=== PATIENT | male | born 1945 | race African-American/Black ===

== ENCOUNTER → 2020-02-27 10:18 | Outpatient (BNVA) | payer MEDICARE, SELFPAY | PROVIDERS: PCP Internal Medicine; Referring Provider Internal Medicine; Visit Provider Urology | DX: C61 Malignant neoplasm of prostate (principal) | CPT/HCPCS: 51798; 99214 ==

== ENCOUNTER 2020-03-19 07:55 | Outpatient (REF) | payer MEDICARE, SELFPAY ==
[2020-03-19 08:05] VITALS: BP 172/98; PULSE 91; RESP 16; TEMP 36.1; O2SAT 96
[2020-03-19 08:10] VITALS: BMI 33.7
--- NOTE | 2020-03-19 08:31 | MHC.SHP ---
Pre-Procedural Eval Section A The patient is an INPATIENT: No Changes since office visit: No Cold of Flu in the past 2 weeks, No New Medical Problems, No Changes in Medication and No Patient answered all questions The History & Physical has been completed within 30 days and I have reviewed it.: Yes Section B Chief Complaint: prostate ca Allergies: Allergies Allergy/AdvReac Type Severity Reaction Status Date / Time No Known Allergies Allergy Verified 02/27/20 10:51 Plan Patient has been examined and remains a candidate for the planned procedure
--- NOTE | 2020-03-19 08:32 | W.PM.OPN ---
Operative Note Operative Note Date of Service: 03/19/20 Narrative: PreOperative Diagnosis: Prostate cancer Post Operative Diagnosis: Prostate Cancer Procedure: TRUS Perineal nerve block, TRUS gold seed marker placement Surgeon: Dr Gigi Gan Anesthesia: Local Indications for procedure: Prostate Cancer Procedure: Informed consent was verified Placed in left lateral position Abx had been taken Anticoagulation was held Probe placed with lubrication 10cc lidocaine placed 2 markers placed base and apex right 1 marker placed mid left Tolerated well Plan for XRT Pathology: none Drains: none
== END 2020-03-19 07:56 | disposition home or self-care (01) ==
LOC: HO.MS 07:55
PROVIDERS: PCP Internal Medicine; Visit Provider Urology
PROC: (CPT 55876; principal; 2020-03-19 08:00)
DX: C61 Malignant neoplasm of prostate (principal)
CPT/HCPCS: 55876; 76942; A4648

== ENCOUNTER 2020-03-24 14:33 | Outpatient (REF) | payer MEDICARE, SELFPAY ==
[2020-03-24 16:54] LABS: Prostate Specific Antigen Scr < 0.05 ng/mL (<0.05-4.0)
== END 2020-03-24 14:34 | disposition home or self-care (01) ==
LOC: HO.LAB 14:33
PROVIDERS: PCP Internal Medicine; Visit Provider Urology
DX: R30.0 Dysuria (principal); R97.20 Elevated prostate specific antigen [PSA]
CPT/HCPCS: 84153; 87086; 87088; 87186

== ENCOUNTER → 2020-04-08 12:45 | Outpatient (BNVA) | payer MEDICARE, SELFPAY | PROVIDERS: PCP Internal Medicine; Referring Provider Internal Medicine; Visit Provider Urology | DX: C61 Malignant neoplasm of prostate (principal); N48.1 Balanitis | CPT/HCPCS: 99212; J9217 ==

== ENCOUNTER 2020-07-06 09:40 | Outpatient (REF) | payer MEDICARE, SELFPAY ==
[2020-07-06 11:15] LABS: Prostate Specific Antigen < 0.05 ng/mL (<0.05-4.0)
[2020-07-14 18:31] LABS: Testosterone, Total 6 ng/dL (250-1100)
== END 2020-07-06 09:41 | disposition home or self-care (01) ==
LOC: HO.LAB 09:40
PROVIDERS: PCP Internal Medicine Nephrology; Visit Provider Urology
DX: Z12.5 Encounter for screening for malignant neoplasm of prostate (principal); C61 Malignant neoplasm of prostate
CPT/HCPCS: 36415; 84153; 84403

== ENCOUNTER 2020-07-20 09:44 | Outpatient (REF) | payer MEDICARE, SELFPAY | END 2020-07-20 09:45 | disposition home or self-care (01) | LOC: CF 09:44 | PROVIDERS: PCP Internal Medicine Nephrology; Visit Provider Urology | DX: N39.0 Urinary tract infection, site not specified (principal); N41.9 Inflammatory disease of prostate, unspecified; C61 Malignant neoplasm of prostate | CPT/HCPCS: 81002; 87086; 87088; 87186; 99212 ==

== ENCOUNTER → 2020-09-30 09:55 | Outpatient (BNVA) | payer MEDICARE, SELFPAY | PROVIDERS: PCP Internal Medicine Nephrology; Visit Provider Urology | DX: C61 Malignant neoplasm of prostate (principal); I48.20 Chronic atrial fibrillation, unspecified; I50.22 Chronic systolic (congestive) heart failure; Z79.899 Other long term (current) drug therapy | CPT/HCPCS: 96402; 99212; J9217 ==

== ENCOUNTER → 2021-01-04 11:04 | Outpatient (BNVA) | payer MEDICARE, SELFPAY | PROVIDERS: PCP Internal Medicine Nephrology; Visit Provider Urology | DX: Z13.89 Encounter for screening for other disorder (principal) | CPT/HCPCS: Q3014 ==

== ENCOUNTER → 2021-04-05 11:35 | Outpatient (BNVA) | payer MEDICARE, SELFPAY | PROVIDERS: PCP Internal Medicine Nephrology; Visit Provider Urology | DX: Z13.89 Encounter for screening for other disorder (principal) | CPT/HCPCS: Q3014 ==

== ENCOUNTER → 2021-06-29 11:23 | Outpatient (BNVA) | payer MEDICARE, SELFPAY | PROVIDERS: PCP Internal Medicine Nephrology; Visit Provider Urology | DX: C61 Malignant neoplasm of prostate (principal) | CPT/HCPCS: Q3014 ==

== ENCOUNTER → 2021-10-05 12:55 | Outpatient (BNVA) | payer MEDICARE, SELFPAY | PROVIDERS: PCP Internal Medicine Nephrology; Visit Provider Urology | DX: C61 Malignant neoplasm of prostate (principal) | CPT/HCPCS: Q3014 ==

== ENCOUNTER → 2022-05-16 11:13 | Outpatient (BNVA) | payer MEDICARE, SELFPAY | PROVIDERS: PCP Internal Medicine Nephrology; Visit Provider Urology | DX: C61 Malignant neoplasm of prostate (principal) | CPT/HCPCS: Q3014 ==

== ENCOUNTER 2023-01-02 11:20 | Outpatient (AMB) | payer MEDICARE, SELFPAY ==
--- OUTSIDE RECORDS SUMMARY | 2023-01-02 11:21 | XMS_ITS | Continuity of Care Document ---
Author Name Unknown Organization [facility] Address [address] [place] [address]- Care Team Providers Care [employer] Service Technician Name Role Phone Norberto Yost MD [id number] Date[facility] 09[facility] [address], [place] [address] Discharge Disposition: A-D/C Home Attending Physician: Leida MARINELLI(Hem/Onc), Navid Phipps Admitting Physician: Leida MARINELLI(Hem/Onc), Navid Phipps Referring Physician: Norberto Yost MD Allergies, Adverse Reactions, Alerts No Known Allergies Medications carvedilol 25 mg oral tablet By Mouth, 0 Refills, Maintenance, 03/11/14 13:49:28 Start Date: 03/11/14 Status: Ordered Crestor 40 mg oral tablet 1 tablet = 40 mg, By Mouth, Daily, # 30 tablet, 0 Refills, Maintenance, 07/19/15 21:22:51, Tablet Start Date: 07/19/15 Status: Ordered ezetimibe 10 mg oral tablet 1 tablet = 10 mg, By Mouth, Daily, # 90 tablet, 0 Refills, Maintenance, 06/24/18 9:49:41 EST, Tablet Start Date: 06/24/18 Status: Ordered ferrous sulfate 325 mg oral tablet 1 tablet = 325 mg, By Mouth, 3 times a day, 0 Refills Start Date: 05/10/09 Stop Date: 06/09/09 Status: Ordered finasteride 5 mg oral tablet 1 tablet = 5 mg, By Mouth, Daily, # 90 tablet, 0 Refills, Maintenance, 06/24/18 9:49:33 EST, Tablet Start Date: 06/24/18 Status: Ordered Lasix Tablet 80, mg, By Mouth, 2 times a day, 0, 0, 02/16/08 14:53:22, Print MERLINE Number, [id number], Constant Indicator Start Date: 02/16/08 Status: Ordered Soliqua 100/33 subcutaneous solution 0 Refills, Maintenance, 06/24/18 9:49:02 EST Start Date: 06/24/18 Status: Ordered Spiriva HandiHaler 18 mcg Inhalation Capsule 1 capsule = 18 mcg, Inhalation, Daily, # 90 capsule, 0 Refills, Maintenance, 03/11/14 13:47:51, Capsule Start Date: 03/11/14 Status: Ordered Stiolto Respimat 2 puffs, Inhalation, Every 24 hours, 0 Refills, Maintenance, 01/22/17 10:24:10 Start Date: 01/22/17 Status: Ordered Vitamin D 42010 iu oral capsule = 50,000 International_Units, By Mouth, Every week, 0 Refills Start Date: 05/10/09 Stop Date: 06/07/09 Status: Ordered Problem List Condition Confirmation Course Effective Dates Status Health St atus Informant 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 Vital Signs Most recent to oldest [Reference Range]: 1 Height 189 cm (06/16/22 11:10 AM) Weight 129.5 kg (06/16/22 11:10 AM) Oxygen Saturation [94-100 %] 91 % *L* (06/16/22 11:10 AM) Pulse Rate [55-90 bpm] 66 bpm (06/16/22 11:10 AM) Body Mass Index [18.5-24.99 kg/m2] 36.25 kg/m2 *>HHI* (06/16/22 11:10 AM) Blood Pressure [90-138/55-84 mm Hg] 157/ 80mm Hg *H* (06/16/22 11:10 AM) Temperature [96.8-100.4 DegF] 97.4 DegF (06/16/22 11:10 AM) Blood pressure sites Arm, left (06/16/22 11:10 AM) Temperature Route Oral (06/16/22 11:10 AM) Dry Weight 129.5 kg (06/16/22 11:10 AM) Weight Obtained Via Standing scale (06/16/22 11:10 AM) Dry Weight Obtained Via Standing scale (06/16/22 11:10 AM) Social History Social History Type Response Smoking Status Former smoker entered on: 08/28/14 Sex Note * Marisa Reyes MA: PERFORM, SIGN, VERIFY Event Display: Patient Education/Instruction Authored Date: [id number] [facility] *Heme/Onc Adult Clinical Summary Name RORY ARGUETA Age 76 Years 1945 PCP Priyank MARINELLI, [id number] Date 06/13/2022 15:09:00 Additional Instructions: Scheduled Appointments?? Future Appointments ?[facility] ?[address]??[place],??[place],??[address] ?Phone:??[phone]?Fax:??-- ?Appt. Date:??08/31/2022?9:00 AM ?Scheduled Provider:??[facility] Follow-Up Instructions ?? With: Address: When: Navid Garciarahul 02/12/2023 11:00 AM Comments: @3400 Diagnosis Medications: Please continue your medications until treatment is completed or stopped by your provider. Discuss any questions related to medications with your provider. Medications to Continue with No Changes These medications were not printed or sent to your pharmacy Carvedilol (carvedilol 25 mg oral tablet) Oral. Next Dose: Ergocalciferol (Vitamin D 71138 iu oral capsule) 50,000 International Unit Oral every week. Next Dose: Ezetimibe (ezetimibe 10 mg oral tablet) 1 tab(s) Oral Daily. Next Dose: Ferrous Sulfate (ferrous sulfate 325 mg oral tablet) 1 tab(s) Oral 3 times a day. Next Dose: Finasteride (finasteride 5 mg oral tablet) 1 tab(s) Oral Daily. Next Dose: Furosemide (Lasix Tablet) 80 Milligram Oral twice a day. Next Dose: insulin glargine-lixisenatide (Soliqua 100/33 subcutaneous solution) Next Dose: olodaterol-tiotropium (Stiolto Respimat) 2 puff(s) Inhalation every 24 hours. Next Dose: Rosuvastatin (Crestor 40 mg oral tablet) 1 tab(s) Oral Daily. Next Dose: Tiotropium (Spiriva HandiHaler 18 mcg Inhalation Capsule) 18 Microgram Inhalation Daily. Next Dose: Allergy Info:?? NKA Medications Given This Visit Future Orders ?No future orders Vital Signs Height 189 cm Weight 129.5 kg BMI 36.25 kg/m2 Blood Pressure 157 mm Hg/80 mm Hg Temperature 97.4 DegF Pulse Rate 66 bpm Respiratory Rate 02 Sat Mode of Delivery 91 %/ You can now view a summary of your hospital visit from the comfort of your home through a free online portal called [employer]. [employer] is a website that allows you to securely view your medical information including discharge summary, medications and follow-up visits. ??You can alsosend a secure electronic message to your doctor???s office to request appointments, renew medications or just ask a question. You can enroll at [email or web address] or register during your next office visit. Disclaimer:?? The information provided is of a general nature and is intended to be used in conjunction with the recommendations and advice of your health care practitioner. ??Every effort has been made to ensure that the information provided is accurate and complete at the time it is provided to you however, as your needs change, or, as new ??information becomes available, different or additional instructions may be required. If you have questions, please consult with your primary care provider or pharmacist, as appropriate. ??This information is not intended to serve as substitution for assessment and evaluation by a qualified health care provider. If you do not have a primary care provider, you may find a [facility] provider by calling [facility] [employer] [facility] at [phone]. For information about the plan of care including goals and instructions for your diagnosis, please see the patient education orders section of this document. Patient Education Materials?? The content of this educational material or handout may have been modified, supplemented, or adapted from its original content and format to support your individualized medical care. Patient Care team information Care Team Personnel Name: Norberto Yost MD Position: [facility] Physician (General Medicine) Member Role: PCP Address: Address: [address] [place] [address] [address] [place] [address]- Care Team Related Persons Name: RUBÉN MERCADO Address: home [address] [place], [place] Name: CHAU ARGUETA Address: [address] [place] [address]
--- OUTSIDE RECORDS SUMMARY | 2023-01-02 11:21 | XMS_ITS | Continuity of Care Document ---
Author Name Unknown Organization [facility] an[facility] Address [address] [place] [address]- Care Team Providers Care Safety Lead Name Role Phone Norberto Yost MD Primary Care Physician [facility] [id number] Date(s): 06/13/22 - 07/13/22 [facility] [address] [place], [place] [address] Attending Physician: Barbara Reyes Admitting Physician: AdmBarbara connell Referring Physician: AdmtrBarbara Allergies, Adverse Reactions, Alerts No Known Allergies [...] 0, 0, 02/16/08 14:53:22, Print MERLINE Number, [id number], Constant Indicator Start Date: 02/16/08 Status: Ordered [...] Start Date: 01/22/17 Status: Ordered Vitamin D 87338 iu oral capsule = 50,000 International_Units, By Mouth, Every week, 0 Refills Start Date: 05/10/09 Stop Date: 06/07/09 Status: Ordered Problem List Condition Confirmation Course Effective Dates Status Health St atus Informant 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
--- OUTSIDE RECORDS SUMMARY | 2023-01-02 11:21 | XMS_ITS | Continuity of Care Document ---
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 Date(s): 12/28/22 - 12/28/[address] [address] Discharge Disposition: A-D/C Home Attending Physician: Jose Antonio Mike MD Admitting Physician: Jose Antonio Mike MD Referring Physician: Jose nAtonio Mike MD Allergies, Adverse Reactions, Alerts No Known Allergies Medications carvedilol 25 mg oral tablet 1 tablet = 25 mg, By Mouth, 2 times a day, 0 Refills, Maintenance, 03/11/14 13:49:28 EST Start Date: 03/11/14 Status: Ordered Coumadin Tablet By Mouth, Daily, coumadin dose changed per pt. by Dr. Yost, PCP, 0 Refills, Maintenance, 12/27/22 11:01:00 EDT, Tablet Start Date: 12/27/22 Status: Ordered Crestor 40 mg oral tablet 1 tablet = 40 mg, By Mouth, Daily, # 30 tablet, 0 Refills, Maintenance, 07/19/15 21:22:51 EDT, Tablet Start Date: 07/19/15 Status: Ordered Entresto 49 mg-51 mg oral tablet 1 tablet, By Mouth, 2 times a day, # 60 tablet, 0 Refills, Maintenance, 12/27/22 11:17:00 EDT, Tablet, Partial fill upon patient request if the prescription is for a schedule II opioid drug. Start Date: 12/27/22 Status: Ordered esomeprazole 40 mg oral enteric coated capsule 1 capsule = 40 mg, By Mouth, Daily in AM, # 30 capsule, 0 Refills, Maintenance, 12/27/22 11:07:00 EDT, CR Capsule, Partial fill upon patient request if the prescription is for a schedule II opioid drug. Start Date: 12/27/22 Status: Ordered ezetimibe 10 mg oral tablet 1 tablet = 10 mg, By Mouth, Daily, # 90 tablet, 0 Refills, Maintenance, 06/24/18 9:49:41 EST, Tablet Start Date: 06/24/18 Status: Ordered Farxiga 10 mg oral tablet 1 tablet = 10 mg, By Mouth, Daily in AM, # 30 tablet, 0 Refills, Maintenance, 12/27/22 11:15:00 EDT, Tablet, Partial fill upon patient request if the prescription is for a schedule II opioid drug. Start Date: 12/27/22 Status: Ordered ferrous sulfate 325 mg oral tablet 1 tablet = 325 mg, By Mouth, 3 times a day, 0 Refills, Soft Stop, 05/10/09 17:20:14 EST Start Date: 05/10/09 Stop Date: 06/09/09 Status: Ordered finasteride 5 mg oral tablet 1 tablet = 5 mg, By Mouth, Daily, # 90 tablet, 0 Refills, Maintenance, 06/24/18 9:49:33 EST, Tablet Start Date: 06/24/18 Status: Ordered Lasix Tablet 80 mg, By Mouth, 2 times a day, Refills 0, Tot. Refills 0, 02/16/08 14:53:22 EDT Start Date: 02/16/08 Status: Ordered metolazone 5 mg oral tablet 5 mg, 1, tablet, By Mouth, Every 7 days, takes on Wednesdays, once a week., # 30 tablet, Refills 0,Maintenance, 12/27/22 11:26:00 EDT, Partial fill upon patient request if the prescription is for a schedule II opioid drug. Start Date: 12/27/22 Status: Ordered Miscellaneous Rx potassium 10 mg tablet, By Mouth, Daily in AM, 0 Refills, Maintenance, 12/27/22 11:21:00 EDT Start Date: 12/27/22 Status: Ordered Repatha Subcutaneous Infusion, Every 14 days, last dose was on 12/25/2022., 0 Refills, Maintenance, 12/27/2310:20:00 EDT, Partial fill upon patient request if the prescription is for a schedule II opioid drug. Start Date: 12/27/22 Status: Ordered Soliqua 100/33 subcutaneous solution 24 units, Daily in AM, 0 Refills, Maintenance, 06/24/18 9:49:02 EST Start Date: 06/24/18 Status: Ordered Spiriva HandiHaler 18 mcg Inhalation Capsule 1 capsule = 18 mcg, Inhalation, Daily in AM, # 90 capsule, 0 Refills, Maintenance, 03/11/14 13:47:51 EST, Capsule Start Date: 03/11/14 Status: Ordered Stiolto Respimat 2 puffs, Inhalation, Every 24 hours, 0 Refills, Maintenance, 01/22/17 10:24:10 EDT Start Date: 01/22/17 Status: Ordered Symbicort 160mcg/4.5mcg Inhaler 2, puffs, Inhalation, 2 times a day, # 6 Gm, Refills 0, Maintenance, 12/27/22 11:32:00 EDT, Aerosol Start Date: 12/27/22 Status: Ordered torsemide 20 mg oral tablet 1 tablet = 20 mg, By Mouth, 2 times a day, # 30 tablet, 0 Refills, Maintenance, 12/27/22 11:09:00 EDT, Tablet, Partial fill upon patient request if the prescription is for a schedule II opioid drug. Start Date: 12/27/22 Status: Ordered Vitamin D 92270 iu oral capsule 1000 iu, By Mouth, Daily in AM, 0 Refills, Soft Stop, 05/10/09 17:22:15 EST Start Date: 05/10/09 Stop Date: 06/07/09 Status: Ordered Problem List Condition Confirmation Course Effective Dates Status [facility] Informant 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 Vital Signs Most recent to oldest [Reference Range]: 1 2 3 Height 187.96 cm (12/28/22 11:49 AM) 187.96 cm (12/27/22 12:03 PM) Weight 118.1 kg (12/28/22 11:49 AM) 115.91 kg (12/27/22 12:03 PM) Oxygen Saturation [94-100 %] 93 % *L* (12/28/22 1:15 PM) 94 % (12/28/22 1:00 PM) 100 % (12/28/22 12:45 PM) Pulse Rate [55-90 bpm] 75 bpm (12/28/22 11:49 AM) Body Mass Index [18.5-24.99 kg/m2] 33.43 kg/m2 *>HHI* (12/28/22 11:49 AM) 32.81 kg/m2 *>HHI* (12/27/22 12:03 PM) Blood Pressure [90-138/55-84 mm Hg] 119/71mm Hg (12/28/22 1:00 PM) 103/56mm Hg (12/28/22 12:45 PM) 112/80mm Hg (12/28/22 11:49 AM) Respiratory Rate [16-30 br/min] 18 br/min (12/28/22 1:15 PM) 19 br/min (12/28/22 1:00 PM) 27 br/min (12/28/22 12:45 PM) Temperature [96.8-100.4 DegF] 98.2 DegF (12/28/22 2:30 PM) 97.3 DegF (12/28/22 12:45 PM) 98.7 DegF (12/28/22 11:49 AM) Liters per Minute 6 L/min (12/28/22 12:45 PM) Mode of Delivery (Oxygen) Room air (12/28/22 2:30 PM) Room air (12/28/22 1:00 PM) Simple face mask (12/28/22 12:45 PM) Blood pressure sites Arm, left (12/28/22 1:00 PM) Arm, left (12/28/22 12:45 PM) Arm, left (12/28/22 11:49 AM) Temperature Route Temporal (12/28/22 2:30 PM) Temporal (12/28/22 12:45 PM) Temporal (12/28/22 11:49 AM) Dry Weight 118.1 kg (12/28/22 11:49 AM) 115.91 kg (12/27/22 12:03 PM) Weight Obtained Via Standing scale (12/28/22 11:49 AM) Patient/family stated (12/27/22 12:03 PM) Dry Weight Obtained Via Standing scale (12/28/22 11:49 AM) Patient/family stated (12/27/22 12:03 PM) Social History Social History Type Response Smoking Status Former smoker entered on: 08/28/14 Sex History and physical note * Event Display: History and Physical Hospital Authored Date: [id number] Note * Fatimah Gonzalez RN: PERFORM Event Display: Discharge/Transfer Note Hospital Authored Date: [id number] Nursing Discharge Note Entered On: 12/28/2022 14:39 EDT Performed On: 12/28/2022 14:38 EDT by Fatimah Gonzalez RN Nursing Discharge Note 2 Discharge Time : 12/28/2022 14:31 EDT Discharge Level of Care at Discharge : Home/Correction/Foster Care Patient Left Unit Via : Wheelchair Patient Accompanied Off Unit with : Other: child DC Instructions Provided & Signed by Pt : Yes Patient Understands D/C Instructions : Yes Patient Instructions Discharge Signed : Yes Did Pt have Specialty Bed or Wound Vac : No Fatimah Gonzalez RN - 12/28/2022 14:38 EDT * Fatimah Gonzalez RN: PERFORM Event Display: Patient Education/Instruction Authored Date: [id number] Inpatient Adult Discharge Instructions [address] [address] Name: RORY ARGUETA : 1945 Visit: 12/28/2022 10:13:00 Current Date: 12/28/2022 14:09 Account: [id number] Inpatient Adult Discharge Instructions We would like to thank you for allowing us to assist you with your healthcare needs. The following includes patient education materials and information regarding your injury/illness. Our entire staffstrives to provide an excellent experience for our patients and their families. PLEASE ENSURE YOU FOLLOW-UP PER THE INSTRUCTIONS BELOW! ?? YOUR OPINION IS IMPORTANT TO US! Please complete the survey you may receive by mail or email. Your feedback will be used to make improvements to the healthcare experiences of our patients and their families. Surveys are administered by [employer] ?? If further treatment with your primary care physician or another doctor is recommended, it is important for you to keep the appointment. Call your primary care physician or return to the Emergency Department immediately if your condition worsens, fails to improve, or new symptoms develop. If you need to find a doctor, you can call [facility] [employer] for a referral at [phone] or toll free at [phone] or log in to [email or web address].. ?? You can view and manage your care through the patient portal or by using a health care erinn of your choosing. [employer] is a website that allows you to securely view your medical information including your hospital discharge summary, office visit summaries, medications and follow-up visits. You can also request appointments, renew medications, and request access to your medical information using a health care erinn of your choosing, or just ask a question. You can enroll at [email or web address] or register during your next office visit. You have been discharged from [facility], Patient Care Unit: [facility]. If you have any questions regarding these instructions after you leave, please call us and we will be happy to assist you. [facility] Your Care Team Attending Physician Jose Antonio Mike MD Discharging Providers Jose Antonio Mike MD Reason for Admission RIGHT CARPAL TUNNELDS CS Tests Performed Below is a partial list of the tests performed during your hospitalization. You may have had other tests and procedures not included in this list. Please discuss all test results with your provider. GLUCOSE POC INR Primary Care Provider Norberto Yost MD Advance Directive Health Care Proxy on File No Discharge Vitals Temperature: 97.3 DegF Height: 187.96 cm Pulse Rate: 75 bpm Weight: 118.1 kg Respiratory Rate: 18 br/min Body Mass Index:??33.43 kg/m2??Critical Systolic Blood Pressure: 119 mm Hg Body surface area: 2.48 Diastolic Blood Pressure: 71 mm Hg ?? Oxygen Saturation:??93 %??Low ?? Studies Pending All tests and labs ordered during this hospital stay have been completed unless listed below. Please discuss all pending results with your provider listed above in these instructions. ?? No incomplete studies found What to do next Instructions From Your Doctor Discharge Orders Instructions from your Care Team see attached sheet for instructions ?? Ice Pack, Apply to dorsum of hand, begin in PACU, ON 20 minutes, OFF 20 minutes ?? Follow up with surgeon as schedule Call office with any questions O Elevate on Pillow(s) ?? Elevate elbow on 2 pillows Range of Motion Encourage range of motion of fingers You Need to Schedule the Following Appointments Follow Up with??Cee MARINELLI, Jose Antonio Krishnan When:??Within 1 to 2 weeks Where: [address] [facility] [place] [address]- Discharge Medications RORY ARGUETA :1945 Visit Date:12/28/2022 Medications: Please continue your medications until treatment is completed or stopped by your provider. Medications not listed below should be discontinued. Discuss any questions related to medications with your provider. What How Much When Instructions Next Dose Changed Ergocalciferol (Vitamin D 29296 iu oral capsule) 1000 iu Oral Daily in the morning Changed Miscellaneous Rx potassium 10 mg tablet Oral Daily in the morning Unchanged Budesonide-Formoterol (Symbicort 160mcg/ 4.5mcg Inhaler) 2 puff(s) Inhalation Twice a day Unchanged Carvedilol (carvedilol 25 mg oral tablet) 1 tab(s) Oral Twice a day Unchanged dapagliflozin (Farxiga 10 mg oral tablet) 1 tab(s) Oral Daily in the morning Unchanged Esomeprazole (esomeprazole 40 mg oral enteric coated capsule) 1 capsule Oral Daily in the morning Unchanged evolocumab (Repatha) Subcutaneous Infusion Every 14 days last dose was on 2022. ?? Unchanged Ezetimibe (ezetimibe 10 mg oral tablet) 1 tab(s) Oral Daily Unchanged Ferrous Sulfate (ferrous sulfate 325 mg oral tablet) 1 tab(s) Oral 3 times a day Unchanged Finasteride (finasteride 5 mg oral tablet) 1 tab(s) Oral Daily Unchanged Furosemide (Lasix Tablet) 80 Milligram Oral Twice a day Unchanged insulin glargine-lixisenatide (Soliqua 100/ 33 subcutaneous solution) 24 units Daily in the morning Unchanged Metolazone (metolazone 5 mg oral tablet) 1 tab(s) Oral Every 7 days takes on Wednesdays, once a week. ?? Unchanged olodaterol-tiotropium (Stiolto Respimat) 2 puff(s) Inhalation Every 24 hours Unchanged Rosuvastatin (Crestor 40 mg oral tablet) 1 tab(s) Oral Daily Unchanged sacubitril-valsartan (Entresto 49 mg-51 mg oral tablet) 1 tab(s) Oral Twice a day Unchanged Tiotropium (Spiriva HandiHaler 18 mcg Inhalation Capsule) 18 Microgram Inhalation Daily in the morning Unchanged torsemide (torsemide 20 mg oral tablet) 1 tab(s) Oral Twice a day Unchanged Warfarin (Coumadin Tablet) Oral Daily coumadin dose changed per pt. by Dr. Yost, PCP ?? Test Results Below is a partial list of the most recent Laboratory test results done prior to this discharge. You may have had other tests and procedures not included in this list. Please discuss all test resultswith your provider. GLUCOSE POC (12/28/2022) ???Glucose, POC - 114 mg/dL INR (12/28/2022) ???INR - 1.3???Protime (PT) - 13.2 seconds Allergies (NKA means No Known Allergies) NKA Problems Active Problems??(2) IgA monoclonal gammopathy of uncertain significance?? Obese class I?? Education Materials Below is the list of Educational Leaflet Providered with your Discharge Instructions. ??NSAID Analgesic Schedule?? Surgery Medical Daystay Surgical Overnight Discharge Instructions?? Valuables and Belongings I fully understand and agree that [facility] accepts no responsibility for all my personal property including clothing, toilet articles, radios, jewelry, dentures, hearing aids, rings, money, or any other property that is in my possession or is brought to me after admission. I understand certain valuables may be placed in a hospital safe for a short period of time. I understand that the hospital is not liable for loss or damage due to accident, fire, or other natural occurrence while said property is in the safe. I accept full responsibility for any personal property that I keep with me, and will not hold the hospital responsible in case of loss or disappearance. I acknowledge that i have been encouraged to send valuables and belongings home. ?? Date for Pt to Sign Valuables/Belongings: 12/28/22 11:49:00 ?? Valuables & Belongings ?? Clothes Electronic devices Jewelry Monetary Items Personal devices Miscellaneous Medications (Valuables) Valuables at Bedside Pants, Shirt, Shoes ? Valuables Sent Home ? Valuables Sent to Security ? Other Discharge Information ? Pulmonary Rehab Status?? Pulmonary Rehab Discharge Status?? Respiratory Rate: 18 br/min ? Common Emergency Awareness Tips IS IT A STROKE? Act FAST and Check for these signs: FACE Does the face look uneven? ARM Does one arm drift down? SPEECH Does their speech sound strange? TIME Call at any sign of stroke ?? Heart Attack Signs Chest discomfort: Most heart attacks involve discomfort in the center of the chest and lasts more than a few minutes, or goes away and comes back. It can feel like uncomfortable pressure, squeezing, fullness or pain. Discomfort in upper body: Symptoms can include pain or discomfort in one or both arms, back, neck, jaw or stomach. Shortness of breath: With or without discomfort. Other signs: Breaking out in a cold sweat, nausea, or lightheaded. Remember, MINUTES DO MATTER. If you experience any of these heart attack warning signs, call to get immediate medical attention! ?? Smoking can increase your chances of developing chronic health problems and can cause harmful effects to other family members in your house. If you smoke, you are strongly encouraged to quit. Please call [facility] [email or web address] Link at [phone] or [phone]) or log in to [email or web address] for referrals to smoking cessation programs. ?? 314 Suicide & Crisis Lifeline is available 27/11 if you or someone you know needs to find a reason to keep living. By calling 632 you'll be connected to a skilled, trained counselor at a crisis center in your area. INPATIENT DISCHARGE INSTRUCTIONS SIGNATURE PAGE RORY ARGUETA Location:[facility] Registration Date and Time:12/28/2022 10:13 EDT Primary Care Physician: Norberto Yost MD, Attending Physician: Jose Antonio Mike MD, I RORY ARGUETA, have received the above patient education materials/instructions and have verbalized understanding. If ambulance or transport services are being used I further acknowledge beinggiven a choice of service. ?? If you need to contact me, please call me at this number: . Patient/Loader Name: Patient/Loader Signature: Relationship to Patient: Witness Name/Signature: Date: * Fatimah Gonzalez RN: PERFORM Event Display: Patient Education/Instruction Authored Date: [id number] Inpatient Adult Discharge Instructions [address] [address] Name: RORY ARGUETA : 1945 Visit: 12/28/2022 10:13:00 Current Date: 12/28/2022 13:54 Account: [id number] Inpatient Adult Discharge Instructions We would like to thank you for allowing us to assist you with your healthcare needs. The following includes patient education materials and information regarding your injury/illness. Our entire staffstrives to provide an excellent experience for our patients and their families. PLEASE ENSURE YOU FOLLOW-UP PER THE INSTRUCTIONS BELOW! ?? YOUR OPINION IS IMPORTANT TO US! Please complete the survey you may receive by mail or email. Your feedback will be used to make improvements to the healthcare experiences of our patients and their families. Surveys are administered by [employer] ?? If further treatment with your primary care physician or another doctor is recommended, it is important for you to keep the appointment. Call your primary care physician or return to the Emergency Department immediately if your condition worsens, fails to improve, or new symptoms develop. If you need to find a doctor, you can call [facility] [employer] for a referral at [phone] or toll free at [phone] or log in to [email or web address] ?? You can view and manage your care through the patient portal or by using a health care erinn of your choosing. [employer] is a website that allows you to securely view your medical information including your hospital discharge summary, office visit summaries, medications and follow-up visits. You can also request appointments, renew medications, and request access to your medical information using a health care erinn of your choosing, or just ask a question. You can enroll at [email or web address] or register during your next office visit. You have been discharged from [facility], Patient Care Unit: [facility]. If you have any questions regarding these instructions after you leave, please call us and we will be happy to assist you. [facility] Your Care Team Attending Physician Jose Antonio Mike MD Discharging Providers Jose Antonio Mike MD Reason for Admission RIGHT CARPAL TUNNELDS CS Tests Performed Below is a partial list of the tests performed during your hospitalization. You may have had other tests and procedures not included in this list. Please discuss all test results with your provider. GLUCOSE POC INR Primary Care Provider Norberto Yost MD Advance Directive Health Care Proxy on File No Discharge Vitals Temperature: 97.3 DegF Height: 187.96 cm Pulse Rate: 75 bpm Weight: 118.1 kg Respiratory Rate: 18 br/min Body Mass Index:??33.43 kg/m2??Critical Systolic Blood Pressure: 119 mm Hg Body surface area: 2.48 Diastolic Blood Pressure: 71 mm Hg ?? Oxygen Saturation:??93 %??Low ?? Studies Pending All tests and labs ordered during this hospital stay have been completed unless listed below. Please discuss all pending results with your provider listed above in these instructions. ?? No incomplete studies found What to do next Instructions From Your Doctor Discharge Orders Instructions from your Care Team see attached sheet for instructions You Need to Schedule the Following Appointments Follow Up with??Cee MARINELLI, Jose Antonio Krishnan When:??Within 1 to 2 weeks Where: [address] [place] [address]- Discharge Medications RORY ARGUETA :1945 Visit Date:12/28/2022 Medications: Please continue your medications until treatment is completed or stopped by your provider. Medications not listed below should be discontinued. Discuss any questions related to medications with your provider. What How Much When Instructions Next Dose Changed Ergocalciferol (Vitamin D 18074 iu oral capsule) 1000 iu Oral Daily in the morning Changed Miscellaneous Rx potassium 10 mg tablet Oral Daily in the morning Unchanged Budesonide-Formoterol (Symbicort 160mcg/ 4.5mcg Inhaler) 2 puff(s) Inhalation Twice a day Unchanged Carvedilol (carvedilol 25 mg oral tablet) 1 tab(s) Oral Twice a day Unchanged dapagliflozin (Farxiga 10 mg oral tablet) 1 tab(s) Oral Daily in the morning Unchanged Esomeprazole (esomeprazole 40 mg oral enteric coated capsule) 1 capsule Oral Daily in the morning Unchanged evolocumab (Repatha) Subcutaneous Infusion Every 14 days last dose was on 2022. ?? Unchanged Ezetimibe (ezetimibe 10 mg oral tablet) 1 tab(s) Oral Daily Unchanged Ferrous Sulfate (ferrous sulfate 325 mg oral tablet) 1 tab(s) Oral 3 times a day Unchanged Finasteride (finasteride 5 mg oral tablet) 1 tab(s) Oral Daily Unchanged Furosemide (Lasix Tablet) 80 Milligram Oral Twice a day Unchanged insulin glargine-lixisenatide (Soliqua 100/ 33 subcutaneous solution) 24 units Daily in the morning Unchanged Metolazone (metolazone 5 mg oral tablet) 1 tab(s) Oral Every 7 days takes on Wednesdays, once a week. ?? Unchanged olodaterol-tiotropium (Stiolto Respimat) 2 puff(s) Inhalation Every 24 hours Unchanged Rosuvastatin (Crestor 40 mg oral tablet) 1 tab(s) Oral Daily Unchanged sacubitril-valsartan (Entresto 49 mg-51 mg oral tablet) 1 tab(s) Oral Twice a day Unchanged Tiotropium (Spiriva HandiHaler 18 mcg Inhalation Capsule) 18 Microgram Inhalation Daily in the morning Unchanged torsemide (torsemide 20 mg oral tablet) 1 tab(s) Oral Twice a day Unchanged Warfarin (Coumadin Tablet) Oral Daily coumadin dose changed per pt. by Dr. Yost, PCP ?? Test Results Below is a partial list of the most recent Laboratory test results done prior to this discharge. You may have had other tests and procedures not included in this list. Please discuss all test resultswith your provider. GLUCOSE POC (12/28/2022) ???Glucose, POC - 114 mg/dL INR (12/28/2022) ???INR - 1.3???Protime (PT) - 13.2 seconds Allergies (NKA means No Known Allergies) NKA Problems Active Problems??(2) IgA monoclonal gammopathy of uncertain significance?? Obese class I?? Education Materials Below is the list of Educational Leaflet Providered with your Discharge Instructions. ??NSAID Analgesic Schedule?? Surgery Medical Daystay Surgical Overnight Discharge Instructions?? Valuables and Belongings I fully understand and agree that [facility] accepts no responsibility for all my personal property including clothing, toilet articles, radios, jewelry, dentures, hearing aids, rings, money, or any other property that is in my possession or is brought to me after admission. I understand certain valuables may be placed in a hospital safe for a short period of time. I understand that the hospital is not liable for loss or damage due to accident, fire, or other natural occurrence while said property is in the safe. I accept full responsibility for any personal property that I keep with me, and will not hold the hospital responsible in case of loss or disappearance. I acknowledge that i have been encouraged to send valuables and belongings home. ?? Date for Pt to Sign Valuables/Belongings: 12/28/22 11:49:00 ?? Valuables & Belongings ?? Clothes Electronic devices Jewelry Monetary Items Personal devices Miscellaneous Medications (Valuables) Valuables at Bedside Pants, Shirt, Shoes ? Valuables Sent Home ? Valuables Sent to Security ? Other Discharge Information ? Pulmonary Rehab Status?? Pulmonary Rehab Discharge Status?? Respiratory Rate: 18 br/min ? Common Emergency Awareness Tips IS IT A STROKE? Act FAST and Check for these signs: FACE Does the face look uneven? ARM Does one arm drift down? SPEECH Does their speech sound strange? TIME Call at any sign of stroke ?? Heart Attack Signs Chest discomfort: Most heart attacks involve discomfort in the center of the chest and lasts more than a few minutes, or goes away and comes back. It can feel like uncomfortable pressure, squeezing, fullness or pain. Discomfort in upper body: Symptoms can include pain or discomfort in one or both arms, back, neck, jaw or stomach. Shortness of breath: With or without discomfort. Other signs: Breaking out in a cold sweat, nausea, or lightheaded. Remember, MINUTES DO MATTER. If you experience any of these heart attack warning signs, call to get immediate medical attention! ?? Smoking can increase your chances of developing chronic health problems and can cause harmful effects to other family members in your house. If you smoke, you are strongly encouraged to quit. Please call [facility] ZANK[employer] Link at [phone] or [phone] ([phone]) or log in to [email or web address] for referrals to smoking cessation programs. ?? 729 Suicide & Crisis Lifeline is available 27/11 if you or someone you know needs to find a reason to keep living. By calling 071 you'll be connected to a skilled, trained counselor at a crisis center in your area. INPATIENT DISCHARGE INSTRUCTIONS SIGNATURE PAGE RORY ARGUETA Location:[facility] Registration Date and Time:12/28/2022 10:13 EDT Primary Care Physician: Norberto Yost MD, Attending Physician: Jose Antonio Mike MD, I RORY ARGUETA, have received the above patient education materials/instructions and have verbalized understanding. If ambulance or transport services are being used I further acknowledge beinggiven a choice of service. ?? If you need to contact me, please call me at this number: . Patient/Loader Name: Patient/Loader Signature: Relationship to Patient: Witness Name/Signature: Date: * Fatimah Gonzalez RN: PERFORM Event Display: Patient Education Leaflets Authored Date: [id number] NSAID Analgesic Schedule ?? 604 NSAID???s Analgesic Schedule ?? Pain is the primary source of illness following your procedure and can include dehydration, difficulty and painful swallowing, and weight loss. These symptoms can lead to increased post-operative visits and hospital readmission. The best way to control pain is to take pain medications regularly. Your doctor has recommended both Ibuprofen and Acetaminophen (generic/store brands are okay, too). These can be picked up over the counter at your pharmacy of choice. Follow the instructions on the bottle to determine the proper dosage to give. The simplest way to take these medications it to rotate the two at 3-hour intervals. Here is a sample diagram. The time you take your medications may vary from this example. Do not give Ibuprofen more than every 6 hours or Acetaminophen every 4 hours. Do not give Acetaminophen if your doctor has given you a prescription that contains Acetaminophen. ? * Fatimah oGnzalez RN: PERFORM Event Display: Patient Education Leaflets Authored Date: [id number] Surgery Medical Daystay Surgical Overnight Discharge Instructions ?? 295 Medical Daystay/Surgical Overnight Discharge Instructions ? Since your coordination and judgment may be altered by medication and/or anesthesia, a responsible adult must drive you home from the hospital. ? If you have received medication for pain or sedation while under our care, you should not drive, operate machinery, drink alcohol, or sign any legal documents for 24 hours.?? You should have someone with you at home tonight. ? Remain at home the day of discharge.?? You may be up and about unless otherwise instructed by your physician. ? You may resume your daily prescription medication schedule.?? Any depressant medication should be avoided for 24 hours unless otherwise instructed by your surgeon or anesthesiologist. ? Call your physician for a follow-up appointment.? If you experience unusual or severe pain not relied by your pain medication, excessive bleedingor drainage, persistent nausea and vomiting, excessive swelling or redness, foul odor from incisionsite or fever over 100.6F, you need to call your physician. ? A follow-up phone call by a nurse will be made the day after your procedure.?? If you have stayed with us over night, you will not be receiving a follow-up phone call. ? Nausea and vomiting are a common side effect of prescription pain medication.?? We recommend that pills are not taken on an empty stomach.?? While taking any prescription pain medication you should not drive or drink alcohol. ? Patient Care team information Care Team Personnel Name: Norberto Yost MD Position: S Physician - Primary Care Member Role: PCP Address: Address: [address] [place] [address] [address] [place] [address]- Care Team Related Persons Name: RUBÉN MERCADO Address: home [address] [place], [place] Name: CHAU ARGUETA Address: home [address] [place] [address]
--- OUTSIDE RECORDS SUMMARY | 2023-01-02 11:21 | XMS_ITS | Continuity of Care Document ---
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 Name Role Phone Norberto Yost MD Primary Care Physician [phone] [facility] [id number] Date(s): 06/23/22 - 07/23/22 [facility] [address] [address] Attending Physician: Barbara Reyes Admitting Physician: Barbara Reyes Referring Physician: AdmtrBarbara Allergies, Adverse Reactions, Alerts [...] 0, 0, 02/16/08 14:53:22, Print MERLINE Number, [id number], Constant Indicator Start Date: 02/16/08 Status: Ordered [...] Start Date: 01/22/17 Status: Ordered Vitamin D 70259 iu oral capsule = 50,000 International_Units, By Mouth, Every week, 0 Refills Start Date: 05/10/09 Stop Date: 06/07/09 Status: Ordered Problem List Condition Confirmation Course Effective Dates Status [facility] Informant 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 Social History Social History Type Response Smoking Status Former smoker entered on: 08/28/14 Sex Patient Care team information Care Team Personnel Name: Norberto Yost MD [facility] Physician (General Medicine) Member Role: PCP Address: Address: [address] [place] [address] [address] [place] [address]- Care Team Related Persons Name: RUBÉN MERCADO Address: home [address] [place] Name: CHAU ARGUETA Address: home [address] [place] [address]
--- OUTSIDE RECORDS SUMMARY | 2023-01-02 11:22 | XMS_ITS | Continuity of Care Document ---
Author Name Unknown Organization [facility] Address [address] [place] [address]- Care Team Providers Care Policy Writer Name Role Phone Norberto Yost MD Primary Care Physician [place] [facility] [place](s): 06/02/22 - 09/09/[address] [address] Attending Physician: Jose Antonio Mike MD Admitting Physician: Jose Antonio Mike MD Allergies, Adverse Reactions, Alerts No [...] 0, 0, 02/16/08 14:53:22, Print MERLINE Number, [id number], Constant Indicator Start Date: 02/16/08 Status: Ordered [...] Start Date: 01/22/17 Status: Ordered Vitamin D 12367 iu oral capsule = 50,000 International_Units, By [...] Team Personnel Name: Norberto Yost MD Position: [facility] Physician (General Medicine) Member Role: PCP Address: Address: [address] [place] [address] [address] [place] [address]- Care Team Related Persons Name: RUBÉN MERCADO Address: home [address] [place] Name: CHAU ARGUETA Address: home [address] [place] [address]
--- NOTE | 2023-01-02 11:24 | MHC.OFFVIS ---
Intake Intake Visit Reasons: 6M PSA/Testo(set) Intake Note: Patient is present for Follow Up labs Urology Med: None Antibiotic Allergy: None Blood Thinner: Apixaban [facility]acy: [facility] Allergies No Known Allergies Allergy (Verified 01/02/23 11:24) Medication List - Last Reconciled 01/02/23 by Gigi Gan MD acetaminophen 650 mg PO Q4H PRN albuterol sulfate 90 mcg/actuation inhalation apixaban 5 mg PO Q12H blood sugar diagnostic As directed budesonide-formoterol 160-4.5 mcg/actuation 2 puffs PO BID canagliflozin 300 mg PO DAILY carvedilol 25 mg PO BID cephalexin (Keflex) 500 mg PO BID 3 days clotrimazole-betamethasone 1-0.05 % 1 appl topical BID 4 weeks dapagliflozin propanediol (Farxiga) 10 mg PO DAILY doxycycline hyclate 100 mg PO BID 7 days esomeprazole magnesium 40 mg PO DAILY evolocumab mg subcut Q2W fluticasone propionate 50 mcg/actuation intranasal furosemide 160 mg PO DAILY gabapentin 600 mg (2 x 300 mg) PO BEDTIME 30 days hydromorphone 2 mg PO BID PRN insulin glargine-lixisenatide 100 unit-33 mcg/mL subcut olmesartan 40 mg PO DAILY pen needle, diabetic As directed potassium chloride ER 10 mEq PO DAILY prednisone 40 mg PO DAILY rosuvastatin 40 mg PO DAILY sacubitril-valsartan 49-51 mg (Entresto) 1 tab PO BID sulfamethoxazole-trimethoprim 800-160 mg (Bactrim DS) 1 tab PO BID 5 days tiotropium bromide 1 cap inhalation DAILY torsemide mg PO warfarin 500f10 mg PO DAILY HPI HPI Comments History of Present Illness Details Frankie is a pleasant male. He is a patient Dr. Yost. He seen for the following urologic conditions - prostate cancer Here for review 12/27 - PSA <0.1 T 87 Prostate cancer: September 2019 high-grade localized disease, external beam radiation with hormone therapy [facility] High risk localized prostate cancer, T1c N0 M0, [place] 4 + 4, grade group 4, PSA 9.1 - initial treatment GnRH with radiation - completed February 2020 Did have significant consequences from coming off anticoagulation with multiple clots in both his lower limbs and his upper limb requiring thrombectomy Prostate cancer was diagnosed Dr Gan 08/24 12/22 , a total PSA evaluation 8.1, 15%, 02/21 8.1 02/21 Bladder US - 30cc prostate with 1.5cm calcification in prostate, 04/23 5.3 on 5AR 11/22 5.3 F 13% 06/26 9.1, 12/24 <0.05 - 07/25 PSA <0.1, T6, 09/24 PSA < 0.1 T 10, 12/25 PSA <0.1, 03/27 <0.1 T10, 05/28 <0.1, 09/25 <0.1 10, 03/28 <0.1 T 64 Diagnosis was reached by needle biopsy, for elevated PSA, PSA at diagnosis 9.1 on 5AR, size at TRUS 30 gm. The [place] grade is September 2019 left base, 4+3 = 7 50%, , 4+3 = 7 90% , left mid gland , 4+4 = 8 90%, , 4+3 = 7 60% , left apex , 4+4 = 8 95%, , 3+4 = 7 50% , right base , 3+4 = 7 50%, , 4+3 = 7 40% , right mid gland BO, , 4+3 = 7 40% , right apex BO, BO Volume 600/1200 = 50% Pattern 4 on 60% of cores. TNM Classification of Malignant Tumours (TNM) T2a. The D'Bre (NCCN) risk category is High Risk (PSA > 20, Gl 8+, T3) - group 4 on biopsy - low risk PSA - intermediate volume. Initial therapy included - GNRH plus external beam radiation - [facility] Therapy for metastatic/CRPC included 10/07/19 Adrenal Blockade, Antiandrogen, GnRH agonist - on maximum blockade with finasteride Recent imaging included 10/24 , a bone scan, with no evidence of metastasis. [facility] Medical History Atherosclerotic heart disease Chronic atrial fibrillation Chronic systolic heart failure Elevated PSA Gastro-esophageal reflux disease without esophagitis Iron deficiency Prostate cancer Prostate nodule Weak urinary stream Surgical History History of surgery Review of Systems Const Denies chills and Denies fever(s) Card Reports no additional complaints and Denies syncope Resp Denies cough GI Denies abdominal pain and Denies heartburn Reports as per HPI and Denies change in libido Neuro Denies syncope Psych Denies change in libido Endo Denies change in libido Physical Exam Const General: cooperative, healthy appearing, comfortable and no acute distress Orientation/consciousness: patient oriented x3 HEENT Face and sinus: Yes normal facial exam Mouth: moist mucous membranes Neck Neck: Yes normal visual inspection, Yes full ROM and Yes trachea midline Chest Chest palpation & inspection: normal inspection of the chest Resp Effort & Inspection: normal respiratory effort, able to speak in complete sentences and no respiratory distress GI Inspection: Yes normal to inspection Back/Spine/Pelvis Cervical Spine: normal cervical lordosis Thoracic/Lumbar Spine: thoracic and lumbar spine normal to inspection Skin General skin exam: no rashes or lesions noted Neuro General: patient oriented x3, gait normal, tone normal and moves all extremities Extrem General: Yes normal to inspection and Yes capillary refill normal Assessment & Plan Assessment & Plan (1) Prostate cancer: Comment: September 2019 high-grade prostate cancer external beam radiation 24 months hormones Code(s): C61 - Malignant neoplasm of prostate Plan Four month follow-up Orders: Orders Prostate Specific Antigen 4 Months C61 - Malignant neoplasm of prostate Testosterone, Total 4 Months C61 - Malignant neoplasm of prostate Patient Instructions: Imaging studies, laboratory and physical exam results were discussed and reviewed in detail. No major barriers to patient understanding were identified. An opportunity to ask questions regarding the treatment plan was provided. All questions were answered. The patient expressed understanding and agreement with the above treatment plan. The patient is aware they should contact our office by phone for worsening of their current condition or the appearance of new urologic symptoms. Compliance is encouraged with any medications and followup testing that is ordered. It is a privilege to participate in the urologic care of your patient. If you have any questions or concerns regarding treatment for the above conditions, or other urologic issues, please do not hesitate to contact me. The office telephone contact is [phone]. This note is constructed using voice recognition software. While every effort has been made to ensure accuracy medical information officer errors may have been included. Yours sincerely, Dr Gigi Gan MD, [facility] - Urology Providers of Expert, Compassionate Care for the Genitourinary System Coding Level of Care Code Est Pt Level 3 (04905) Diagnoses Prostate cancer C61
== END 2023-01-02 12:01 | disposition home or self-care (01) ==
LOC: HO.HUSH 11:20
PROVIDERS: PCP Internal Medicine Nephrology; Visit Provider Urology
DX: C61 Malignant neoplasm of prostate (principal)
CPT/HCPCS: 99213

== ENCOUNTER → 2023-01-02 11:20 | Outpatient (BNVA) | payer MEDICARE, SELFPAY | PROVIDERS: PCP Internal Medicine Nephrology; Visit Provider Urology | DX: C61 Malignant neoplasm of prostate (principal) | CPT/HCPCS: 99212 ==

== ENCOUNTER 2023-06-06 09:16 | Outpatient (AMB) | payer MEDICARE, SELFPAY ==
--- NOTE | 2023-06-06 09:16 | A.OFFVIS_ITS ---
Intake Intake Visit Reasons: PSA follow up (psa set) Intake Note: Patient is Present for Telephone Follow Up PSA Urology Med: None Antibiotic Allergy: None Blood Thinner: Warfarin (Currently not on Apixaban) Allergies No Known Allergies Allergy (Verified 06/06/23 09:17) HPI HPI Comments History of Present Illness Details Frankie is a pleasant male. He is a patient Dr. Yost. He seen for the following urologic conditions - prostate cancer Telemedicine Evaluation 15 min Consultation VideoJax Tram Video 12/27 - PSA <0.1 T 87, 05/30 <0.1 Prostate cancer: September 2019 high-grade localized disease, external beam radiation with hormone therapy [facility] High risk localized prostate cancer, T1c N0 M0, [place] 4 + 4, grade group 4, PSA 9.1 - initial treatment GnRH with radiation - completed February 2020 Did have significant consequences from coming off anticoagulation with multiple clots in both his lower limbs and his upper limb requiring thrombectomy Prostate cancer was diagnosed Dr Gan 08/24 12/22 , a total PSA evaluation 8.1, 15%, 02/21 8.1 02/21 Bladder US - 30cc prostate with 1.5cm calcification in prostate, 04/23 5.3 on 5AR 11/22 5.3 F 13% 06/26 9.1, 12/24 <0.05 - 07/25 PSA <0.1, T6, 09/24 PSA < 0.1 T 10, 12/25 PSA <0.1, 03/27 <0.1 T10, 05/28 <0.1, 09/25 <0.1 10, 03/28 <0.1 T 64 Diagnosis was reached by needle biopsy, for elevated PSA, PSA at diagnosis 9.1 on 5AR, size at TRUS 30 gm. The [place] grade is September 2019 left base, 4+3 = 7 50%, , 4+3 = 7 90%, eft mid gland , 4+4 = 8 90%, , 4+3 = 7 60%, eft apex , 4+4 = 8 95%, , 3+4 = 7 50% , right base , 3+4 = 7 50%, , 4+3 = 7 40%, right mid gland BO, , 4+3 = 7 40%, right apex BO, BO Volume 600/1200 = 50% Pattern 4 on 60% of cores. TNM Classification of Malignant Tumours (TNM) T2a. The D'Bre (NCCN) risk category is High Risk (PSA > 20, Gl 8+, T3) - group 4 on biopsy - low risk PSA - intermediate volume. Initial therapy included - GNRH plus external beam radiation - [facility] Therapy for metastatic/CRPC included 10/07/19 Adrenal Blockade, Antiandrogen, GnRH agonist - on maximum blockade with finasteride Recent imaging included 10/24 , a bone scan, with no evidence of metastasis. [facility] Medical History Gastro-esophageal reflux disease without esophagitis Iron deficiency Atherosclerotic heart disease Chronic systolic heart failure Chronic atrial fibrillation Prostate cancer Weak urinary stream Prostate nodule Elevated PSA Surgical History History of surgery Review of Systems Const All systems reviewed & are unremarkable except as noted in HPI and below Reports no additional complaints Resp Reports no additional complaints GI Reports no additional complaints Reports as per HPI Musc Reports no additional complaints Physical Exam Telemedicine evaluation Appropriate responses Regular breathing rate and rhythm HEENT Head: Yes normal to inspection Ears: hearing grossly normal bilaterally Eyes General: appearance normal, both eyes and all related structures Neck Neck: Yes normal visual inspection Chest Chest palpation & inspection: normal inspection of the chest Resp Effort & Inspection: normal respiratory effort and able to speak in complete sentences Assessment & Plan Assessment & Plan (1) Prostate cancer: Comment: September 2019 high-grade prostate cancer external beam radiation 24 months hormones Code(s): C61 - Malignant neoplasm of prostate Plan Six-month follow-up PSA office Orders: Orders Prostate Specific Antigen 6 Months C61 - Malignant neoplasm of prostate Testosterone, Total 6 Months C61 - Malignant neoplasm of prostate Patient Instructions: Imaging studies, laboratory and physical exam results were discussed and reviewed in detail. No major barriers to patient understanding were identified. An opportunity to ask questions regarding the treatment plan was provided. All questions were answered. The patient expressed understanding and agreement with the above treatment plan. The patient is aware they should contact our office by phone for worsening of their current condition or the appearance of new urologic symptoms. Compliance is encouraged with any medications and followup testing that is ordered. It is a privilege to participate in the urologic care of your patient. If you have any questions or concerns regarding treatment for the above conditions, or other urologic issues, please do not hesitate to contact me. The office telephone contact is [phone]. This note is constructed using voice recognition software. While every effort has been made to ensure accuracy bobbin fixer errors may have been included. Yours sincerely, Dr Gigi Gan MD, [facility] - Urology Providers of Expert, Compassionate Care for the Genitourinary System Telehealth Telehealth Location of provider rendering services: practice address Location of patient: address on file Patient Identification confirmed using: Name, : Yes Telehealth method: video Patient verbally consented to treatment: Yes Patient verbally consented to billing insurance company: Yes Patient informed of any privacy concerns related to visit: Yes Coding Level of Care Code Tele Est Pt Level 4 (58871) Diagnoses Prostate cancer C61
--- OUTSIDE RECORDS SUMMARY | 2023-06-06 09:17 | XMS_ITS | Continuity of Care Document ---
Author Name Unknown Organization [facility] Address [address] [place] [address]- Care Team Providers Care Inspector Coated Fabrics Name Role Phone Norberto Yost MD Primary Care Physician [facility] [id number] Date(s): 02/05/23 - 03/07/[address] [address] Attending Physician: Barbara Reyes [...] Start Date: 12/27/22 Status: Ordered Vitamin D 09723 iu oral capsule 1000 iu, By Mouth, Daily in AM, 0 Refills, Soft Stop, 05/10/09 17:22:15 EST Start Date: 05/10/09 Stop Date: 06/07/09 Status: Ordered Problem List Condition Confirmation Course Effective Dates Status [facility] Informant 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 Social History Social History Type Response Smoking Status Former smoker entered on: 08/28/14 Sex Cardiology * Event Display: Cardiology Office Note, Non- Authored Date: [id number] Patient Care team information Care Team Personnel Name: Norberto Yost MD Position: [facility] Physician - Primary Care Member Role: PCP Address: Address: [address] [place] [address] [address] [place] [address]- Care Team Related Persons Name: RUBÉN MERCADO Address: home [address] [place] Name: CHAU ARGUETA Address: home [address] [place] [address]
--- OUTSIDE RECORDS SUMMARY | 2023-06-06 09:17 | XMS_ITS | Continuity of Care Document ---
Author Name Unknown Organization [facility] ter Address [address] [place] [address]- Care Team Providers Care Motor And Controls Tester Name Role Phone Priyank MARINELLI, Norberto Primary Care Physician [id number] Date(s): 05/24/23 - 05/24/[address] [address]- Discharge Disposition: A-D/C Home Attending Physician: Von Nguyen MD Admitting Physician: Von Nguyen MD Referring Physician: Sherif Carcamo MD Allergies, Adverse Reactions, Alerts No Known [...] Start Date: 12/27/22 Status: Ordered Vitamin D 88754 iu oral capsule 1000 iu, By Mouth, Daily in AM, 0 Refills, Soft Stop, 05/10/09 17:22:15 EST Start Date: 05/10/09 Stop Date: 06/07/09 Status: Ordered Problem List Condition Confirmation Course Effective Dates Status Health St atus Informant 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 Biopsy by Dr. Sherif Carcamo of Nephrology service.?A radiologist was not in attendance. COMPARISON: None. FINDINGS: Several ultrasound images were obtained during and after kidney biopsy. Images show the biopsy needle passing into the parenchyma of the kidney. 3 passes were made. No postprocedural fluid collection or hematoma noted. IMPRESSION: Ultrasound guidance for renal biopsy. I have personally reviewed the images and I agree with this report. WSN: [id number] Ordering Physician: Sherif Carcamo Dictated By: Margot Castellanos MD Dictated Date/Time: 05/24/23 11:58 a Reviewed By: Keon Montero MD Signed By: Keon Montero MD Signed Date/Time: 05/24/23 12:03 pm Transcribed By: ANGELICA Transcribed Date/Time: 05/24/23 11:52 am Vital Signs Most recent to oldest [Reference Range]: 1 2 Height 187.96 cm (05/24/23 10:00 AM) 187.96 cm (05/24/23 9:47 AM) Weight 114 kg (05/24/23 10:00 AM) 114 kg (05/24/23 9:47 AM) Oxygen Saturation [94-100 %] 98 % (05/24/23 9:37 AM) Pulse Rate [55-90 bpm] 75 bpm (05/24/23 9:37 AM) Blood Pressure [90-138/55-84 mm Hg] 122/ 82mm Hg (05/24/23 9:37 AM) Respiratory Rate [16-30 br/min] 18 br/mi n (05/24/23 9:37 AM) Temperature [96.8-100.4 DegF] 97.6 DegF (05/24/23 9:37 AM) Mode of Delivery (Oxygen) Room air (05/24/23 9:37 AM) Blood pressure sites Arm, left (05/24/23 9:37 AM) Temperature Route Oral (05/24/23 9:37 AM) Dry Weight 114 kg (05/24/23 9:47 AM) Social History Social History Type Response Smoking Status Former smoker entered on: 08/28/14 Sex Hospital Progress note * Sha CONTRERAS, Enoc: PERFORM, SIGN, VERIFY, SIGN, MODIFY, SIGN, MODIFY Event Display: Progress Note Hospital Authored Date: [id number] Patient: RORY ARGUETA Age: 77 years Sex: Male : 1945 Associated Diagnoses: None Author: Enoc Dalton RN Findings Evaluation Patient arrived to unit, VSS. Labs drawn. Medical daystay assessment, home med review, and pre-procedure checklist completed. Resting comfortably awaiting procedure. Will continue to monitor. . * Enoc Dalton RN: PERFORM Event Display: Progress Note Hospital Authored Date: Returned from procedure. VSS. Bandaid to left flank CDI. No signs or symptoms of bleeding or hematoma. Bedrest. Will continue to monitor. * Enoc Dalton RN: PERFORM Event Display: Progress Note Hospital Authored Date: No change to bandaid, still CDI. No signs or symptoms of bleeding or hematoma. 4 hour bedrest completed. Voided clear yellow urine, no blood noted. Discharge instructions reviewed and signed. Questions asked and answered. Discharged from unit via wheelchair. Note * Enoc Dalton RN: PERFORM Event Display: Discharge/Transfer Note Hospital Authored Date: Nursing Discharge Note Entered On: 05/24/2023 15:44 EST Performed On: 05/24/2023 15:44 EST by Enoc Dalton RN Nursing Discharge Note 2 Discharge Time : 05/24/2023 15:44 EST Discharge Level of Care at Discharge : Home/Skilled Nursing/Foster Care Patient Left Unit Via : Wheelchair Patient Accompanied Off Unit with : Responsible adult DC Instructions Provided & Signed by Pt : Yes Patient Understands D/C Instructions : Yes Patient Instructions Discharge Signed : Yes Did Pt have Specialty Bed or Wound Vac : No Eonc Dalton RN - 05/24/2023 15:44 EST Patient Care team information Care Team Personnel Name: Sofi Han NP Position: [facility] Associate Professional Member Role: Lifetime Consulting Provider Address: Address: [address] [facility] [address] [facility] [place] [address]- Name: Norberto Yost MD Position: [facility] Physician - Primary Care Member Role: PCP Address: Address: [address] [place] [address] [address] [place] [address]- Care Team Related Persons Name: RUBÉN MERCADO Address: home [place], [place] Name: CHAU ARGUETA Address: home [address] [place] [address]
--- OUTSIDE RECORDS SUMMARY | 2023-06-06 09:17 | XMS_ITS | Continuity of Care Document ---
Author Name Unknown Organization [facility] ancer Care Address [address] [place] [address]- Care Team Providers Care Marketing Communications Specialist Name Role Phone Norberto Yost MD Primary Care Physician [id number] Date(s): 02/05/23 - 05/02/[address] [address]- Discharge Disposition: A-D/C Home Attending Physician: Leida [...] Start Date: 12/27/22 Status: Ordered Vitamin D 55111 iu oral capsule 1000 iu, By Mouth, Daily in AM, 0 Refills, Soft Stop, 05/10/09 17:22:15 EST Start Date: 05/10/09 Stop Date: 06/07/09 Status: Ordered Problem List Condition Confirmation Course Effective Dates Status [facility] St atus Informant 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 Vital Signs Most recent to oldest [Reference Range]: 1 Height 187.96 cm (02/12/23 11:06 AM) Weight 117.7 kg (02/12/23 11:06 AM) Oxygen Saturation [94-100 %] 98 % (02/12/23 11:06 AM) Pulse Rate [55-90 bpm] 101 bpm *H* (02/12/23 11:06 AM) Body Mass Index [18.5-24.99 kg/m2] 33.32 kg/m2 *>HHI* (02/12/23 11:06 AM) Blood Pressure [90-138/55-84 mm Hg] 82/6 6mm Hg *L* (02/12/23 11:06 AM) Temperature [96.8-100.4 DegF] 98.4 DegF (02/12/23 11:06 AM) Mode of Delivery (Oxygen) Room air (02/12/23 11:06 AM) Blood pressure sites Arm, left (02/12/23 11:06 AM) Temperature Route Oral (02/12/23 11:06 AM) Dry Weight 117.7 kg (02/12/23 11:06 AM) Weight Obtained Via Standing scale (02/12/23 11:06 AM) Dry Weight Obtained Via Standing scale (02/12/23 11:06 AM) Social History Social History Type Response Smoking Status Former smoker entered on: 08/28/14 Sex Patient Care team information Care Team Personnel Name: Norberto Yost MD Position: [facility] Physician - Primary Care Member Role: PCP Address: Address: [address] [place] [address] [address] [place] [address]- Name: Leida MARINELLI(Hem/Onc)Navid Position: [facility] Physician - Oncology Med Service: Hematology & Oncology Member Role: Admitting Physician Address: Address: [address] [place] [address] [facility] [place] [address]- Care Team Related Persons Name: RUBÉN MERCADO Address: home [address] [place], [place] Name: CHUA ARGUETA Address: home [address] [place] [address]
== END 2023-06-06 10:50 | disposition home or self-care (01) ==
LOC: HO.HUSH 09:16
PROVIDERS: PCP Internal Medicine Nephrology; Visit Provider Urology
DX: C61 Malignant neoplasm of prostate (principal)
CPT/HCPCS: 99213

== ENCOUNTER → 2023-06-06 09:16 | Outpatient (BNVA) | payer MEDICARE, SELFPAY | PROVIDERS: PCP Internal Medicine Nephrology; Visit Provider Urology ==

== ENCOUNTER 2023-12-05 11:17 | Outpatient (AMB) | payer MEDICARE, SELFPAY ==
--- OUTSIDE RECORDS SUMMARY | 2023-12-05 11:19 | XMS_ITS ---
Author Organization Norberto Yost MD Address [address] [id number] Care Team Providers Care Immunochemist Name Role Phone Norberto Yost Primary Care Provider REASON FOR VISIT reschedule appt Encounters Encounter Location Date Provider Diagnosis Norberto Yost MD [address] [place] [address] [place] [id number] 12/04/2023 Norberto Yost Plan Of Treatment Next Appt Details Provider Name:Norberto Yost , 01/02/2024 08:45:00 AM, [address] [place] [address], [id number], Provider Name:Norberto Yost , 01/30/2024 08:45:00 AM, [address] [place] [address], [phone], Provider Name:Norberto Yost , 02/27/2024 08:45:00 AM, [address] [place] [address], [phone], Provider Name:Norberto Yost , 04/23/2024 04:00:00 PM, [address] [place] [address], [phone], Progress Notes * Frankie ARGUETADOB:1945 (78 yo M)Acc No.[id number]:12/04/2023 Patient:?Frankie ARGUETA :1945???Age:78 Y???Sex:Male Address:[address], [facility] [place], [address] * * Date:?
--- OUTSIDE RECORDS SUMMARY | 2023-12-05 11:19 | XMS_ITS | Continuity of Care Document ---
Author Organization [facility] Address [address] [place] [address]- Care Team Providers Care Pharmacy Intake Technician Name Role Phone Norberto Yost MD Primary Care Physician [id number] Date(s): 05/25/23 - 11/04/23 [facility] [address] [place] [id number] Discharge Disposition: A-D/C Home Attending Physician: Leida MARINELLI(Hem/Onc), Navid Phipps Admitting Physician: Leida MARINELLI(Hem/Onc)Navid Referring Physician: Norberto Yost MD Allergies, Adverse [...] Start Date: 12/27/22 Status: Ordered Vitamin D 84040 iu oral capsule 1000 iu, By Mouth, Daily in AM, 0 Refills, Soft Stop, 05/10/09 17:22:15 EST Start Date: 05/10/09 Stop Date: 06/07/09 Status: Ordered Problem List Condition Confirmation Course Effective Dates Status Health St atus Informant 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 Vital Signs Most recent to oldest [Reference Range]: 1 2 Height 187.96 cm (08/09/23 8:08 AM) 187.96 cm (06/06/23 2:18 PM) Weight 117.9 kg (08/09/23 8:08 AM) 119.2 kg (06/06/23 2:18 PM) Oxygen Saturation [94-100 %] 94 % (08/09/23 8:08 AM) 98 % (06/06/23 2:18 PM) Pulse Rate [55-90 bpm] 91 bpm *H* (08/09/23 8:08 AM) 91 bpm *H* (06/06/23 2:18 PM) Body Mass Index [18.5-24.99 kg/m2] 33.37 kg/m2 *>HHI* (08/09/23 8:08 AM) 33.74 kg/m2 *>HHI* (06/06/23 2:18 PM) Blood Pressure [90-138/55-84 mm Hg] 126/ 73mm Hg (08/09/23 8:08 AM) 116/68mm Hg (06/06/23 2:18 PM) Temperature [96.8-100.4 DegF] 97.5 DegF (08/09/23 8:08 AM) 97.2 DegF (06/06/23 2:18 PM) Mode of Delivery (Oxygen) Room air (08/09/23 8:08 AM) Room air (06/06/23 2:18 PM) Blood pressure sites Arm, left (08/09/23 8:08 AM) Arm, right (06/06/23 2:18 PM) Temperature Route Oral (08/09/23 8:08 AM) Oral (06/06/23 2:18 PM) Dry Weight 117.9 kg (08/09/23 8:08 AM) 119.2 kg (06/06/23 2:18 PM) Weight Obtained Via Standing scale (08/09/23 8:08 AM) Standing scale (06/06/23 2:18 PM) Dry Weight Obtained Via Standing scale (08/09/23 8:08 AM) Standing scale (06/06/23 2:18 PM) Social History Social History Type Response Smoking Status Former smoker entered on: 08/28/14 Sex Cytogenetics study * Leida MARINELLI(Hem/Onc), Navid H: ENDORSE Event Display: Cytogenetics Report Authored Date: [id number] Patient Name: RORY ARGUETA Lab Accesssion #: [id number] Patient : 1945 (Age: 77) Collection Date: 08/09/2023 Accession Date: 08/09/2023 Sign Out Date: 09/03/2023 Tissue Source: 1: CANCER NGS HEM PANEL Final Diagnosis: [facility] results received 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 Primary Pathologist: KRYSTLE MURDOCK M.D. Phone #: [phone], On-Call Pathologist: [id number] * Leida MARINELLI(Hem/Onc)Navid: ENDORSE Event Display: Cytogenetics Report Authored Date: [id number] Patient Name: RORY ARGUETA Lab Accesssion #: [id number] Patient : 1945 (Age: 77) Collection Date: 08/09/2023 Accession Date: 08/09/2023 Sign Out Date: 08/28/2023 Tissue Source: 1: CHROMOSOME ANALYSIS BONE MARROW 2: PLASMA CELL FISH Final Diagnosis: [facility] results received reporting complex karyotype, please see [facility] (similar records tab). Primary Pathologist: KRYSTLE MURDOCK M.D. Phone #: [phone], On-Call Pathologist: [id number] Patient Care team information Care Team Personnel Name: Sofi Han NP Position: [facility] Associate Professional Member Role: Lifetime Consulting Provider Address: Address: [address] [place] [address] [address] [facility] [place] [address]- [place] Name: Norberto Yost MD Position: [facility] Physician - Primary Care Member Role: PCP Address: Address: [address] [place] [address] [address] [place] [address]- [place] Name: Leida MARINELLI(Hem/Onc)Navid Position: [facility] Physician - Oncology Med Service: Hematology & Oncology Member Role: Admitting Physician Address: Address: [address] [place] [address] for [facility] [place] [address]- [place] Care Team Related Persons Name: RUBÉN MERCADO Address: home [place], [place] Name: CHAU ARGUETA Address: home [address] [place] [address]
--- OUTSIDE RECORDS SUMMARY | 2023-12-05 11:19 | XMS_ITS | Continuity of Care Document ---
Author Organization [facility] ancer Care Address [address] [place] [address]- Care Team Providers Care Cable Supervisor Name Role Phone Norberto Yost MD Primary Care Physician [facility] [id number] Date(s): 05/25/23 - 06/24/23 [facility] Care [address] [place] [address]- Attending Physician: Barbara Reyes Admitting Physician: Barbara Reyes Referring Physician: Barbara Reyes Allergies, Adverse Reactions, Alerts No Known Allergies [...] Start Date: 12/27/22 Status: Ordered Vitamin D 90605 iu oral capsule 1000 iu, By Mouth, [...] Status Former smoker entered on: 08/28/14 Sex Laboratory * Event Display: Non BH Lab Results Authored Date: * Event Display: Non BH Lab Results Authored Date: * Event Display: Non BH Lab Results Authored Date: Cardiology * Event Display: Cardiology Office Note, Non-BH Authored Date: [id number] Patient Care team information Care Team Personnel Name: Sofi Han NP Position: [facility] Associate Professional Member Role: Lifetime Consulting Provider Address: Address: [address] [facility] [address] [facility] [place] [address]- Name: Norberto Yost MD Position: [facility] Physician - Primary Care Member Role: PCP Address: Address: [address] [place] [address] [address] [place] [address]- Care Team Related Persons Name: RUBÉN MERCADO Address: home [address] [place], [place] Name: CHAU ARGUETA Address: home [address] [place] [address]
--- OUTSIDE RECORDS SUMMARY | 2023-12-05 11:19 | XMS_ITS ---
Author Organization [facility] Address [address] [facility] [place] [id number] Care Team Providers Care Wound Care Physician Name Role Phone [facility]to [facility]ost Primary Care Provider [phone] Allergies No Known Allergies REASON FOR VISIT 1m f/u CHF Medications Medication SIG (Take, Route, Frequency, Duration) Notes Start Date End Date Status Entresto 49-51 MG TAKE 1 TABLET BY MOUTH TWICE A DAY for 30 Active Azelastine HCl 137 MCG/SPRAY 1 puff in each nostril Nasally Twice a day for 30 days 11/05/2023 Active Ozempic (0.25 or 0.5 MG/DOSE) 2 MG/3ML 0.25 mg Subcutaneous Once a Week for 30 days 08/16/2023 12/14/2023 Not-Taking Aspirin 81 MG 1 tablet Orally Once a day Not-Taking Torsemide 20 MG 1 tablet Orally Three Times a Day Active Folic Acid 1 MG TAKE 1 TABLET BY MOUTH EVERY DAY FOR 30 DAYS *NC* for 90 Active Soliqua 100-33 UNT-MCG/ML 25 Units Subcutaneous Once a day Active Symbicort 160-4.5 MCG/ACT INHALE 2 PUFFS BY MOUTH TWICE A DAY for 30 Active Spiriva HandiHaler 18 MCG INHALE 1 CAPSULE VIA HANDIHALER ONCE DAILY AT THE SAME TIME EVERY DAY for 30 Active Repatha SureClick 140 MG/ML INJECT 1 ML UNDER THE SKIN EVERY 14 DAYS for 84 days Active Farxiga 10 MG TAKE 1 TABLET BY MOUTH EVERY DAY Orally Once a day for 90 days Active FreeStyle Lite Test - USE DIRECTED TWICE A DAY DX: E11.22 90 DAYS for 90 Active Rosuvastatin Calcium 40 MG 1 tablet Orally Once a day for 90 days Active Esomeprazole Magnesium 40 MG TAKE 1 CAPSULE BY MOUTH EVERY DAY for 90 Active Warfarin Sodium 5 MG TAKE 1 TO 2 TABLETS BY MOUTH EVERY DAY for 90 Active Carvedilol 25 MG 0.5 Tablet Orally Twice a day Active Acetaminophen Extra Strength 500 MG 2 capsule as needed Orally every 8hrs Active Diclofenac Sodium & Capsaicin 1.5 & 0.025 % as directed Externally Active BD Pen Needle Micro U/F 32G X 6 MM USE DIRECTED ONCE A DAY for 90 Dx: E11.22 Active Ipratropium-Albuterol 0.5-2.5 (3) MG/3ML 3 mL as needed Inhalation every 6 hrs for 30 days Active ProAir HFA 108 (90 Base) MCG/ACT 2 puff as needed Inhalation every 4 hrs Active Verquvo 10 MG 1 tablet with food Orally Once a day for 90 days Active NovoFine 32G X 6 MM USE 1 DAILY DIRECTED FOR 90 DAY SUPPLY for 90 Active Flonase 50 MCG/ACT 2 spray in each nostril Nasally Once a day for 30 day(s) 01/06/2020 Active Social History Tobacco Use: Social History Observation Description Date Details (start date - stop date) Former Smoker NA - NA Alcohol Screen (Audit-C) Question Answer Notes Did you have a drink containing alcohol in the p ast year? No Points 0 Interpretation Negative Tobacco Control (Standard) Question Answer Notes Tobacco use: Former smoker How long has it been since you last smoked? Grea ter than 10 years Problems Problem Type SNOMED Code ICD Code Onset Dates Problem Status W/U Status Risk Notes Problem Lumbar spondylosis with myelopathy (21231718) Other spondylosis with myelopathy, lumbar region (M47.16) Active confirmed Vital Signs Temperature 98.3 degrees Fahrenheit 12/04/19 24 Heart Rate 104 /min 12/04/2023 Height 70.75 in 12/04/2023 Oximetry 97 % 12/04/2023 Encounters Encounter Location Date Provider Diagnosis [facility] [address] [phone] 12/04/2023 [facility] Type 2 diabetes mellitus with diabetic chronic kidney disease E11.22 ; Hypertensive heart and chronic kidney disease with heart failure and stage 1 through stage 4 chronic kidney disease, or unspecified chronic kidney disease I13.0 ; detention (current) use of insulin Z79.4 ; Chronic kidney disease, stage 4 (severe) N18.4 ; Chronic systolic (congestive) heart failure I50.22 ; Longstanding persistent atrial fibrillation I48.11 ; Other thrombophilia D68.69 ; Pulmonary hypertension due to left heart disease I27.22 ; Malignant neoplasm of prostate C61 ; Other myelodysplastic syndromes D46.Z ; Chronic obstructive pulmonary disease, unspecified J44.9 ; Simple chronic bronchitis J41.0 ; Body mass index [BMI] 39.0-39.9, adult Z68.39 ; Morbid (severe) obesity with alveolar hypoventilation E66.2 ; Obstructive sleep apnea (adult) (pediatric) G47.33 ; Atherosclerotic heart disease of [place] coronary artery without angina pectoris I25.10 ; Other ventricular tachycardia I47.29 ; Monoclonal gammopathy D47.2 ; Iron deficiency anemia, unspecified D50.9 ; Other folate deficiency anemias D52.8 ; Mixed hyperlipidemia E78.2 ; Vitamin D deficiency, unspecified E55.9 and Other spondylosis with myelopathy, lumbar region M47.16 Assessments Encounter Date Diagnosis (ICD Code) Assessment Notes Treatment Notes Treatment Clinical Notes 12/04/2023 Type 2 diabetes mellitus with diabetic chronic kidney disease (ICD-10 - E11.22) Stable at present. Continue current medical therapy. 12/04/2023 Hypertensive heart and chronic kidney disease with heart failure and stage 1 through stage 4 chronic kidney disease, or unspecified chronic kidney disease (ICD-10 - I13.0) Stable at present. 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 Continue control of comorbidities of hypertension diabetes 12/04/2023 Chronic systolic (congestive) heart failure (ICD-10 - I50.22) He has more edema and his symptomatically decompensated with increasing shortness of breath. Recommend increase diuretic therapy and this may cause some worsening of his calculated GFR but he needs to control his volume more so than preserve GFR at this point 12/04/2023 Longstanding persistent atrial fibrillation (ICD-10 - I48.11) Remains rate controlled and anticoagulated 12/04/2023 Other thrombophilia (ICD-10 - D68.69) His [id number]-LVAm score is at least a 6. In view of this he is at risk for thromboembolic events and can continue chronic anticoagulation patient 12/04/2023 Pulmonary hypertension due to left heart disease (ICD-10 - I27.22) Stable on prior echocardiograms. Continue control of heart failure. 12/04/2023 Malignant neoplasm o f prostate (ICD-10 - C61) Stable with periodic follow-up with urology. 12/04/2023 Other myelodysplasti c syndromes (ICD-10 - D46.Z) He had a biopsy done with hematology and results are still pending. He has not heard any follow-up yet. 12/04/2023 Chronic obstructive pulmonary disease, unspecified (ICD-10 - J44.9) Stable at present. There is no active wheezing therefore shortness of breath is probably more heart failure than COPD 12/04/2023 Simple chronic bronchitis (ICD-10 - J41.0) He has an occasional cough with some mucus. This is stable. This is probably chronic bronchitis in association with his COPD. 12/04/2023 Body mass index [BMI ] 39.0-39.9, adult (ICD-10 - Z68.39) Continue encourage exercise and weight loss 12/04/2023 Morbid (severe) obesity with alveolar hypoventilation (ICD-10 - E66.2) He continues to work on diet and exercise. 12/04/2023 Obstructive sleep apnea (adult) (pediatric) (ICD-10 - G47.33) Continues to use CPAP with benefit 12/04/2023 Atherosclerotic hear t disease of [place] coronary artery without angina pectoris (ICD-10 - I25.10) Stable at present without any signs of active and progressive coronary artery disease 12/04/2023 Other ventricular tachycardia (ICD-10 - I47.29) Stable without any symptomatic recurrence of ventricular tachycardia 12/04/2023 Monoclonal gammopath y (ICD-10 - D47.2) Stable at present. Follow-up with hematology is ongoing. It does not appear that he has multiple myeloma. 12/04/2023 Iron deficiency anemia, unspecified (ICD-10 - D50.9) Stable on prior labs as reviewed 12/04/2023 Other folate deficiency anemias (ICD-10 - D52.8) Stable with current replacement therapy. 12/04/2023 Mixed hyperlipidemia (ICD-10 - E78.2) Stable with LDL less than 50. Continue current medical therapy 12/04/2023 Vitamin D deficiency , unspecified (ICD-10 - E55.9) Stable on prior labs as reviewed with vitamin D level goal of 50+ 12/04/2023 Other spondylosis with myelopathy, lumbar region (ICD-10 - M47.16) He has increasing pain and weakness in his left leg. He is unable to get up off the chair as a result of this weakness. On exam there is weakness and he is unable to resist my testing in terms of strength. Given the weakness that has not improved and his pain that is worsening this is most likely a myelopathy and this may be a consequence of either a simple spondylosis or result of his prostate cancer with metastases. Bone scan would be 1 option but given his neurologic findings recommend MRI to evaluate for compressive myelopathy 12/04/2023 Other This note was created with voice dictation recognition software and may contain errors of grammar and syntax. Also labs were reviewed with patient. Plan Of Treatment Medication Medication Name Sig Start Date Stop Date Notes Torsemide 20 MG 1 tablet Orally Three Times a Day Pending Test Test Name Order Date MR Lumbar Spine WO 12/04/2023 Urinalysis, Complete-[id number] 12/04/2023 Albumin/Creatinine Ratio,Urine-[id number] B-Type Natriuretic Peptide-251991 2023 Comp. Metabolic Panel (14)-[id number] 2023 Next Appt Details Follow Up: 2 Weeks, Reason: CHF Provider Name:Norberto Yost , 01/02/2024 08:45:00 AM, [address] [place] [address], [address], [phone], Provider Name:Norberto oYst , 01/30/2024 08:45:00 AM, [address] [place] [address], [phone], Provider Name:Norberto Yost , 02/27/2024 08:45:00 AM, [address] [place] [address], [address], [phone], Provider Name:Norberto Yost , 04/23/2024 04:00:00 PM, [address], [address], [place], [place], [phone], Progress Notes * Frankie ARGUETADOB:1945 (78 yo M)Acc No.[id number]:12/04/2023 Progress Note Patient:?Frankie ARGUETA Provider:?Norberto Yost MD :1945???Age:78 Y???Sex:Male Castro e:12/04/2023 Address:[facility] [address], [id number] Subjective: * Chief Complaints: * ???1. 1m f/u CHF. * HPI: ???Chronic Obstructive Pulmonary Disease:?78 year old male presents with c/o The patient presents for follow-up of COPD.?Coronary Artery Disease:?c/o Patient presents for follow-up of coronary artery disease.?Atrial Fibrillation:?c/o Patient presents for follow-up of atrial fibrillation.?CHADS2 score?His NAG4FJ4-BPZh score is at least an 6.?Chronic kidney disease:?c/o Classification of renal failure is?Stage 2.?Glomerular filtration rate?CKD-EPI calculated at: 70.?Congestive Heart Failure:?c/o Patient presents for follow-up of congestive heart failure?which is considered secondary to low output.?Hypertension:?c/o Patient presents for follow-up of hypertension.? 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, 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, Genetic carrier of other disease, Partial intestinal obstruction, unspecified as to cause, Other secondary pulmonary hypertension, Longstanding persistent atrial fibrillation, Dyskinesia of esophagus, Pulmonary hypertension due to left heart disease, Body mass index (BMI) 40.0-44.9, adult, Presence of coronary angioplasty implant and graft, Old myocardial infarction, Acute on chronic systolic (congestive) heart failure (resolved 10/20/2020), Sebaceous cyst (resolved 11/15/2020), Acute on chronic systolic (congestive) heart failure (resolved 11/15/2020), Body mass index [BMI] 40.0-44.9, adult (resolved 04/11/2022), Age-related nuclear cataract, right eye (resolved 05/10/2022), Age-related nuclear cataract, left eye (resolved 05/10/2022), Influenza due to other identified influenza virus with other respiratory manifestations (resolved 05/31/2022), Embolism and thrombosis of arteries of the upper extremities (resolved 01/15/2023), Embolism and thrombosis of arteries of the lower extremities (resolved 01/15/2023), Cellulitis of left lower limb (resolved 01/15/2023), Carpal tunnel syndrome, right upper limb (resolved 01/15/2023), Syncope and collapse (resolved 01/15/2023). * Surgical History:?Thrombecto my, LT Popliteal 09/2019, Thrombectomy, RT Leg 09/2019, Thrombectomy, RT Arm 09/2019, Prostate Gold Seed Marker 03/2020, cyst removal 11/2020, Cataract left eye 01/2022, Cataract right eye 02/2022, Cardiac Catherization 07/2022, carpal tunnel release, RT 12/2022. * Hospitalization/Major Diagno stic Procedure:?Parial Small Bowel Obstruction 12/2017, Bradycardia and Chest Pain 07/2018, Arterial Thrombosis 09/2019, Syncope 02/2021, congestive heart failure 11/2021, Congestive Heart Failure 01/2022, Congestive Heart Failure 07/2022. * Family History:?Spouse: linsey nguyen 77 yrs, Healthy.?Father: 112 yrs, Stroke. at 72.?Mother: , Heart disease. at 63.?Son(s): alive 59 yrs, Healthy.?Daughter(s): alive 45 yrs, Healthy.?Siblings: alive, 2 brother alive hypertension1 sister diabetes, colon blockage at 68 years old1 sister alive hypertension1 brother unknown cancer1 brother infection.?4 brother(s) , 2 sister(s) . 1 son(s) , 1 daughter(s) - healthy. .? No family history of: cancer, prostate Father: diabetes mellitus, hypertension (AWV) Family history verified no changes since last visit. * Social History:?Tobacco Use:?Tobacco Control (Standard)?Tobacco use:?Former smoker ?How long has it been since you last smoked??Greater than 10 years ???Drugs/Alcohol:?Drugs?Have you used drugs other than those for medical reasons in the past 12 months??No ?Alcohol Screen (Audit-C)?Did you have a drink containing alcohol in the past year??No ?Points?0 ?Interpretation?Negative ?Caffeine?Intake:?1-2 cups per day ?Do you smoke marijuana?: Denies. ?Do you drink alcohol?: No. ???Miscellaneous:?Exercise: no. 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 ???Household:?Household?Marital status:? * Medications:?Taking Verquvo 10 MG Tablet 1 tablet with food Orally Once a day , Taking ProAir HFA 108 (90 Base) MCG/ACT Aerosol Solution 2 puff as needed Inhalation every 4 hrs , Taking Flonase 50 MCG/ACT Suspension 2 spray in each nostril Nasally Once a day , Taking NovoFine 32G X 6 MM Miscellaneous USE 1 DAILY DIRECTED FOR 90 DAY SUPPLY , Taking Diclofenac Sodium & Capsaicin 1.5 & 0.025 % Therapy Pack as directed Externally , Taking Acetaminophen Extra Strength 500 MG Capsule 2 capsule as needed Orally every 8hrs , Taking Ipratropium-Albuterol 0.5-2.5 (3) MG/3ML Solution 3 mL as needed Inhalation every 6 hrs , Taking BD Pen Needle Micro U/F 32G X 6 MM Miscellaneous USE DIRECTED ONCE A DAY , Notes to Pharmacist: Dx: E11.22, Taking Carvedilol 25 MG Tablet 0.5 Tablet Orally Twice a day , Taking FreeStyle Lite Test - Strip USE DIRECTED TWICE A DAY DX: E11. 90 DAYS , Taking Farxiga 10 MG Tablet TAKE 1 TABLET BY MOUTH EVERY DAY Orally Once a day , Taking Esomeprazole Magnesium 40 MG Capsule Delayed Release TAKE 1 CAPSULE BY MOUTH EVERY DAY , Taking Rosuvastatin Calcium 40 MG Tablet 1 tablet Orally Once a day , Taking Warfarin Sodium 5 MG Tablet TAKE 1 TO 2 TABLETS BY MOUTH EVERY DAY , Taking Folic Acid 1 MG Tablet TAKE 1 TABLET BY MOUTH EVERY DAY FOR 30 DAYS *NC* , Taking Symbicort 160-4.5 MCG/ACT Aerosol INHALE 2 PUFFS BY MOUTH TWICE A DAY , Taking Soliqua 100-33 UNT-MCG/ML Solution Pen- injector 25 Units Subcutaneous Once a day , Taking Repatha SureClick 140 MG/ML Solution Auto-injector INJECT 1 ML UNDER THE SKIN EVERY 14 DAYS , Taking Spiriva HandiHaler 18 MCG Capsule INHALE 1 CAPSULE VIA HANDIHALER ONCE DAILY AT THE SAME TIME EVERY DAY , Taking Torsemide 20 MG Tablet 1 tablet Orally Two Times a Day , Taking Azelastine HCl 137 MCG/SPRAY Solution 1 puff in each nostril Nasally Twice a day , Taking Entresto 49-51 MG Tablet TAKE 1 TABLET BY MOUTH TWICE A DAY , Not-Taking/PRN Aspirin 81 MG Tablet 1 tablet Orally Once a day , Not-Taking/PRN Ozempic (0.25 or 0.5 MG/DOSE) 2 MG/3ML Solution Pen-injector 0.25 mg Subcutaneous Once a Week , stop date 12/14/2023, Medication List reviewed and reconciled with the patient * Allergies:?N.K.D.A. Objective: * Vitals:?Temp:98.3F, HR:104/m in, Ht:70.75in, Oxygen sat %:97%. Past Vitals:* 11/05/2023 Temp:96.0F, HR:85/min, BP:11 2/64mm Hg, Wt:260.00lbs, BMI:36.52Index, Ht:70.75in, Oxygen sat %:98% * 10/25/2023 Temp:95.8F, HR:83/min, BP:Si tting Right Arm: 118/50mm Hg, Wt:260.00lbs, BMI:36.52Index, Ht:70.75in, Oxygen sat %:96% * 09/24/2023 Temp:96.5F, HR:98/min, BP:Si tting Left Arm: 112/50mm Hg, Wt:260.00lbs, BMI:36.52Index, Ht:70.75in, Oxygen sat %:98% * ???Past Orders: ???Lab:CBC With Differential /Platelet-[id number] (Order Date - 08/22/2023) (Collection Date & Time - 08/22/2023 11:10 AM) ? Value Reference Range ?WBC 1.5 LL 3.4-10.8 - x10E 3/uL ?RBC 3.18 L 4.14-5.80 - x10E6/uL ?Hemoglobin 10.3 L 13.0-17.7 - g/dL ?Hematocrit 32.2 L 37.5-51.0 - % ?MCV 101 H 79-97 - fL ?MCH 32.4 26.6-33.0 - pg ?MCHC 32.0 31.5-35.7 - g/d L ?RDW 13.9 11.6-15.4 - % ?Platelets 105 L 150-450 - x10E3/uL ?Neutrophils 56 Not Esta b. - % ?Lymphs 31 Not Estab. - % ?Monocytes 9 Not Estab. - % ?Eos 2 Not Estab. - % ?Basos 1 Not Estab. - % ?Neutrophils (Absolute) 0.9 L 1.4-7.0 - x10E3/uL ?Lymphs (Absolute) 0.5 L 0. 7-3.1 - x10E3/uL ?Monocytes(Absolute) 0.1 0.1-0.9 - x10E3/uL ?Eos (Absolute) 0.0 0.0-0 .4 - x10E3/uL ?Baso (Absolute) 0.0 0.0- 0.2 - x10E3/uL ?Immature Granulocytes 1 Not Estab. - % ?Immature Grans (Abs) 0.0 0.0-0.1 - x10E3/uL Lab:Comp. Metabolic Panel (1 4)-[id number] * Collection Date 10/25/2023 09/24/2023 08/22/2023 Collection Time 12:10 PM 11:34 AM 11:10 AM Order Date 10/25/2023 09/24/2023 08/22/2023 Glucose 87 (Ref Range: 70-99 mg/dL) 91 (Ref Range: 70-99 mg/dL) 86 (Ref Range: 70-99 mg/dL) BUN 33?H (Ref Range: 8-27 mg/dL) 40?H (Ref Range: 8-27 mg/dL) 45?H (Ref Range: 8-27 mg/dL) Creatinine 2.14?H (Ref Range: 0.76-1.27 mg/dL) 2.44?H (Ref Range: 0.76-1.27 mg/dL) 2.59?H (Ref Range: 0.76-1.27 mg/dL) BUN/Creatinine Ratio 15 (Ref Range: 10-24) 16 (Ref Range: 10-24) 17 (Ref Range: 10-24) Sodium 146?H (Ref Range: 134-144 mmol/L) 142 (Ref Range: 134-144 mmol/L) 143 (Ref Range: 134-144 mmol/L) Potassium 4.5 (Ref Range: 3.5-5.2 mmol/L) 4.4 (Ref Range: 3.5-5.2 mmol/L) 4.1 (Ref Range: 3.5-5.2 mmol/L) Chloride 109?H (Ref Range: 96-106 mmol/L) 103 (Ref Range: 96-106 mmol/L) 103 (Ref Range: 96-106 mmol/L) Carbon Dioxide, Total 25 (Ref Range: 20-29 mmol/L) 24 (Ref Range: 20-29 mmol/L) 24 (Ref Range: 20-29 mmol/L) Calcium 8.9 (Ref Range: 8.6-10.2 mg/dL) 9.0 (Ref Range: 8.6-10.2 mg/dL) 9.3 (Ref Range: 8.6-10.2 mg/dL) Protein, Total 6.3 (Ref Range: 6.0-8.5 g/dL) 6.7 (Ref Range: 6.0-8.5 g/dL) 6.9 (Ref Range: 6.0-8.5 g/dL) Albumin 3.7?L (Ref Range: 3.8-4.8 g/dL) 3.8 (Ref Range: 3.8-4.8 g/dL) 3.9 (Ref Range: 3.8-4.8 g/dL) Globulin, Total 2.6 (Ref Range: 1.5-4.5 g/dL) 2.9 (Ref Range: 1.5-4.5 g/dL) 3.0 (Ref Range: 1.5-4.5 g/dL) A/G Ratio NR 1.3 (Ref Range: 1.2-2.2) 1.3 (Ref Range: 1.2-2.2) Bilirubin, Total 0.3 (Ref Range: 0.0-1.2 mg/dL) 0.3 (Ref Range: 0.0-1.2 mg/dL) 0.4 (Ref Range: 0.0-1.2 mg/dL) Alkaline Phosphatase 104 (Ref Range: 44-121 IU/L) 99 (Ref Range: 44-121 IU/L) 108 (Ref Range: 44-121 IU/L) AST (SGOT) 18 (Ref Range: 0-40 IU/L) 16 (Ref Range: 0-40 IU/L) 18 (Ref Range: 0-40 IU/L) ALT (SGPT) 10 (Ref Range: 0-44 IU/L) 11 (Ref Range: 0-44 IU/L) 11 (Ref Range: 0-44 IU/L) eGFR 31?L (Ref Range: >59 mL/min/1.73) 26?L (Ref Range: >59 mL/min/1.73) 25?L (Ref Range: >59 mL/min/1.73) * Lab:B-Type Natriuretic Pepti de-[id number] * Collection Date 10/25/2023 09/24/2023 08/22/2023 Collection Time 12:10 PM 11:34 AM 11:10 AM Order Date 10/25/2023 09/24/2023 08/22/2023 B-Type Natriuretic Peptide 770.4?H (Ref Range: 0.0-100.0 pg/mL) 428.0?H (Ref Range: 0.0-100.0 pg/mL) 279.0?H (Ref Range: 0.0-100.0 pg/mL) * Lab:Hemoglobin A1C * Collection Date 10/25/2023 09/24/2023 07/16/2023 Collection Time 11:22 AM 10:49 AM 11:00 AM 11:26 AM Order Date 10/25/2023 09/24/2023 07/16/2023 06/21/2023 HbA1c 6.3?A (Ref Range: %) 6.1?A (Ref Range: %) 6.3 (Ref Range: %) 6.2?A (Ref Range: %) ???Lab:LP+Non-HDL Cholesterol-[id number] (Order Date - 08/22/2023) (Collection Date & Time - 08/22/2023 11:10 AM)?ValueReference Range?Cholesterol, Rrdkr343515-684 - mg/dL?Gqsrfagnftmkq988-129 - mg/dL?HDL Lqbknzdsczk01C>39 - mg/dL?VLDL Cholesterol Qbh860-25 - mg/dL?LDL Chol Calc (NIH)460-99 - mg/dL?Non-HDL Yhvmrjympyr439-839 - mg/dL ???Lab:Magnesium-[id number] (Order Date - 08/22/2023) (Collection Date & Time - 08/22/2023 11:10 AM)?ValueReference Range?Magnesium2.01.6-2.3 - mg/dL ???Lab:Folate (Folic Acid), Serum-[id number] (Order Date - 08/22/2023) (Collection Date & Time - 08/22/2023 11:10 AM)?ValueReference Range?Folate (Folic Acid), Serum>20.0>3.0 - ng/mL ???Lab:Iron and TIBC-[id number] (Order Date 08/22/2023) (Collection Date & Time - 08/22/2023 11:10 AM)?ValueReference Range?Iron Bind.Cap.(TIBC)213L 250-450 - ug/dL?OQKG785724-738 - ug/dL?Mylg9425-488 - ug/dL ?Iron Howfaazoay1979-36 - % ???Lab:Ferritin-019160 (Order Date - 08/22/2023) (Collection Date & Time - 08/22/2023 11:10 AM)?ValueReference Range?Ecxiiitr207T99-232 - ng/mL ???Lab:Reticulocyte Count-006200 (Order Date - 08/22/2023) (Collection Date & Time - 08/22/2023 11:10 AM)?ValueReference Range?Reticulocyte Count1.10.6-2.6 - % ???Lab:Vitamin D, 55-Inpouab-[id number] (Order Date - 08/22/2023) (Collection Date & Time - 411:10 AM)?ValueReference Range?Vitamin D, 25-Mhphybr98.530.0-100.0 - ng/mL ???Lab:Urinalysis, Complete-[id number] (Order Date - 08/22/2023) (Collection Date & Time - 08/22/2023 11:10 AM)?ValueReference Range?Specific [place] 1.0121.005-1.030 -?pH6.55.0-7.5 -?Urine-ColorYellowYellow - ?AppearanceClearClear -?WBC EsteraseNegativeNegative - ?ProteinTraceNegative/Trace -?Glucose1+ANegative -?Ketones NegativeNegative -?Occult BloodNegativeNegative -?Bilirubin NegativeNegative -?Urobilinogen,Semi-Qn0.20.2-1.0 - mg/dL?Nitrite, UrineNegativeNegative -?WBCNone seen0 - 5 - /hpf?RBCNone seen0 - 2 - /hpf?Epithelial Cells (non renal)None seen0 - 10 - /hpf?Casts None seenNone seen - /lpf?BacteriaNone seenNone seen/Few - ?Microscopic ExaminationSee below:- ???Lab:Albumin/Creatinine Ratio,Urine-[id number] (Order Date - 08/22/2023) (Collection Date & Time - 08/22/2023 11:10 AM)?ValueReference Range ?Creatinine, Urine60.0Not Estab. - mg/dL?Albumin, Urine38.5Not Estab. - ug/mL?Alb/Creat Fmlzb15P4-80 - mg/g creat * Examination: ???General Examination: ?GENERAL APPEARANCE:?Age appropriate, in no acute distress, well developed, well nourished.?HEAD:?normocephalic, atraumatic.?EYES:?extraocular movement intact (EOMI), sclera non-icteric.?HEART:?irregularly irregular rhythm.?LUNGS:?, no wheezes, rales, rhonchi.?EXTREMITIES:?no clubbing, no cyanosis, , , 2+ pitting edema lower extremities.?NEUROLOGIC:?gait: wlaker.?PSYCH:?alert, oriented, good eye contact.?Neurological: ?MOTOR STRENGTH:?Left hip flexion 3+ out of 5 ?Left knee extension 3+ out of 5.?REFLEXES:?diminished bilaterally.? Assessment: * Assessment: 1.?Type 2 diabetes mellitus with diabetic chronic kidney disease - E11.22???2.?Hypertensive heart and chronic kidney disease with heart failure and stage 1 through stage 4 chronic kidney disease, or unspecified chronic kidney disease - I13.0 (Primary)???3.?detention (current) use of insulin - Z79.4???4.?Chronic kidney disease, stage 4 (severe) - N18.4???5.?Chronic systolic (congestive) heart failure - I50.22 ??6.?Longstanding persistent atrial fibrillation - I48.11???7.?Other thrombophilia - D68.69???8.?Pulmonary hypertension due to left heart disease - I27.22???9.?Malignant neoplasm of prostate - C61???10.?Other myelodysplastic syndromes - D46.Z???11.?Chronic obstructive pulmonary disease, unspecified - J44.9???12.?Simple chronic bronchitis - J41.0???13.?Body mass index [BMI] 39.0- 39.9, adult - Z68.39???14.?Morbid (severe) obesity with alveolar hypoventilation - E66.2???15.?Obstructive sleep apnea (adult) (pediatric) - G47.33???16.?Atherosclerotic heart disease of [place] coronary artery without angina pectoris - I25.10???17.?Other ventricular tachycardia - I47.29???18.?Monoclonal gammopathy - D47.2???19.?Iron deficiency anemia, unspecified - D50.9???20.?Other folate deficiency anemias - D52.8???21.?Mixed hyperlipidemia - E78.2???22.?Vitamin D deficiency, unspecified - E55.9???23.?Other spondylosis with myelopathy, lumbar region - M47.16??? Plan: * Treatment: 2.?Type 2 diabetes mellitus with diabetic chronic kidney disease?LAB: Urinalysis, Complete-[id number] ?LAB: Albumin/Creatinine Ratio,Urine-[id number] ?LAB: Comp. Metabolic Panel ([id number] Clinical Notes: Stable at present. Continue current medical therapy.?? 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 Clinical Notes: Continues to use insulin without complication?? 4.?Chronic kidney disease, s tage 4 (severe)? Clinical Notes: Stable estimated GFR in the 20s. Continue control of comorbidities of hypertension diabetes?? 5.?Chronic systolic (congest gera) heart failure? Increase Torsemide Tablet, 20 MG, 1 tablet, Orally, Three Times a Day.?LAB: B-Type Natriuretic Peptide-[id number] Clinical Notes: He has more edema and his symptomatically decompensated with increasing shortness of breath. Recommend increase diuretic therapy and this may cause some worsening of his calculated GFR but he needs to control his volume more so than preserve GFR at this point?? 6.?Longstanding persistent a trial fibrillation? Clinical Notes: Remains rate controlled and anticoagulated?? 7.?Other thrombophilia? Clinical Notes: His EMV2UT1-PRAx score is at least a 6. In view of this he is at risk for thromboembolic events and can continue chronic anticoagulation patient?? 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 Clinical Notes: Stable on prior echocardiograms. Continue control of heart failure. ?? 9.?Malignant neoplasm of [place]? Clinical Notes: Stable with periodic follow-up with urology.?? 10.?Other myelodysplastic sy ndromes? Clinical Notes: He had a biopsy done with hematology and results are still pending. He has not heard any follow-up yet.?? 11.?Chronic obstructive pulm onary disease, unspecified? Clinical Notes: Stable at present. There is no active wheezing therefore shortness of breath is probably more heart failure than COPD?? 12.?Simple chronic bronchiti s? Clinical Notes: He has an occasional cough with some mucus. This is stable. This is probably chronic bronchitis in association with his COPD.?? 13.?Body mass index [BMI] 39 .0-39.9, adult? Clinical Notes: Continue encourage exercise and weight loss?? 14.?Morbid (severe) obesity with alveolar hypoventilation? Clinical Notes: He continues to work on diet and exercise. ?? 15.?Obstructive sleep apnea (adult) (pediatric)? Clinical Notes: Continues to use CPAP with benefit?? 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 Clinical Notes: Stable at present without any signs of active and progressive coronary artery disease?? 17.?Other ventricular tachyc ardia? Clinical Notes: Stable without any symptomatic recurrence of ventricular tachycardia?? 18.?Monoclonal gammopathy? Clinical Notes: Stable at present. Follow-up with hematology is ongoing. It does not appear that he has multiple myeloma.?? 19.?Iron deficiency anemia, unspecified? Clinical Notes: Stable on prior labs as reviewed?? 20.?Other folate deficiency anemias? Clinical Notes: Stable with current replacement therapy.?? 21.?Mixed hyperlipidemia? Clinical Notes: Stable with LDL less than 50. Continue current medical therapy?? 22.?Vitamin D deficiency, un specified? Clinical Notes: Stable on prior labs as reviewed with vitamin D level goal of 50+?? 23.?Other spondylosis with m yelopathy, lumbar region?Imaging: MR Lumbar Spine WO Clinical Notes: He has increasing pain and weakness in his left leg. He is unable to get up off the chair as a result of this weakness. On exam there is weakness and he is unable to resist my testing in terms of strength. Given the weakness that has not improved and his pain that is worsening this is most likely a myelopathy and this may be a consequence of either a simple spondylosis or result of his prostate cancer with metastases. Bone scan would be 1 option but given his neurologic findings recommend MRI to evaluate for compressive myelopathy?? 24.?Others? Clinical Notes: This note was created with voice dictation recognition software and may contain errors of grammar and syntax. Also labs were reviewed with patient.?? * Preventive Medicine:? ??Counseling:?BP Management:?LIFESTYLE RECOMMENDATION:?Lifestyle education regarding hypertension ?PHYSICAL ACTIVITY RECOMMENDATION:?Given encouragement to exercise ?WEIGHT REDUCTION RECOMMENDATION:?Given encouragement to lose weight ?BMI Care Goal follow up?Above Normal BMI Follow-up?Given encouragement to exercise ??Immunizations:?PCV 13 (Prevnar)?Last PCV13 was administered?04/11/2016 ?PPV 23 (pneumococcal)?Last PPV23 was administered?05/24/2011 ?Tetanus?Last Tetanus was administered?03/25/2020 ?Influenza?Last Influenza was administered?02/20/2023 ?COVID?Passenger Brakeman?[employer] ?First Dose?06/17/2020 ?Second Dose?07/08/2020 ?Booster?03/04/2021 ?Booster Passenger Brakeman?[employer] ?PCV 20 (Prevnar)?Last PCV 20 was administered?04/20/2023 ??Screenings:?Colon cancer screening?Colorectal screening:?Colonoscopy ?Provider recommendation:?3 years ?Date of most recent screening:?01/25/2021 * Follow Up:?2 Weeks (Reason: CHF) * Images: Billing Information: * Visit Code:? 43253 Office Visit, Est Pt., Level 4. * Procedure Codes:? * Electronic signature of Florinda Yost MD on 12/05/2023 at 11:19 AM EDT Sign off status: Pending * Provider:?Norberto Yost MD Date:?12/03 Generated for Ellis beltre/Darshan/eTransmitting on:?12/05/2023 11:19 AM EDT History and Physical Notes * HPI (History of Present Illness) Category Sub-Category Detail Notes Atrial Fibrillation Patient presents for follow-up of atrial fibrillation CHADS2 score His [id number] sco re is at least an 6 Congestive Heart Failure Patient present s for follow-up of congestive heart failure which is considered secondary to low output Coronary Artery Disease Patient presents for follow-up of coronary artery disease Hypertension Patient presents for follow-up of hypertension Chronic kidney disease Classification of renal failure is Stage 2 Glomerular filtration rate CKD-EPI calcu lated at: 70 Chronic Obstructive Pulmonary Disease Th e patient presents for follow-up of COPD Examination Category Sub-Category Detail Notes Neurological MOTOR STRENGTH: Left hip flexion 3+ out of 5 Left knee extension 3+ out of 5 REFLEXES: diminished bilateral ly General Examination GENERAL APPEARANCE: Age appr opriate, in no acute distress, well developed, well nourished HEAD: normocephalic, atrau matic EYES: extraocular movement intact (EOMI), sclera non-icteric HEART: irregularly irregula r rhythm LUNGS: , no wheezes, rales, rhonchi NEUROLOGIC: gait: wlaker EXTREMITIES: no clubbing, no cyan osis, , , 2+ pitting edema lower extremities PSYCH: alert, oriented, goo d eye contact
--- OUTSIDE RECORDS SUMMARY | 2023-12-05 11:19 | XMS_ITS ---
Author Organization Norberto Yost MD Address [address] [phone] Care Team Providers Care Microsoft Crm Developer Name Role Phone Norberto Yost Primary Care Provider REASON FOR VISIT 1m f/u CHF Encounters Encounter Location Date Provider Diagnosis Norberto Yost MD [address] [place] [address] [place] [address] [phone] 12/05/2023 Norberto Yost Plan Of Treatment Next Appt Details Provider Name:Norberto Yost , 01/02/2024 08:45:00 AM, [address] [place] [address], [phone], Provider Name:Norberto Yost , 01/30/2024 08:45:00 AM, [address] [place] [address], [phone], Provider Name:Norberto Yost , 02/27/2024 08:45:00 AM, [address] [place] [address], [phone], Provider Name:Norberto Yost , 04/23/2024 04:00:00 PM, [address] [place] [address], [phone], Progress Notes * Frankie ARGUETADOB:1945 (78 yo M)Acc No.[id number]:12/05/2023 Progress Note Patient:?Frankie ARGUETA Provider:?Norberto Yost MD :1945???Age:78 Y???Sex:Male Castro e:12/05/2023 Address:[facility] [address], [id number] Subjective: * Chief Complaints: * ???1. 1m f/u CHF. * Medical History:? Objective: * Vitals:? Past Vitals:* 12/04/2023 Temp:98.3F, HR:104/min, Ht:7 0.75in, Oxygen sat %:97% * 11/05/2023 Temp:96.0F, HR:85/min, BP:11 2/64mm Hg, Wt:260.00lbs, BMI:36.52Index, Ht:70.75in, Oxygen sat %:98% * 10/25/2023 Temp:95.8F, HR:83/min, BP:Si tting Right Arm: 118/50mm Hg, Wt:260.00lbs, BMI:36.52Index, Ht:70.75in, Oxygen sat %:96% Assessment: Plan: * Treatment: * Images: Billing Information: * Visit Code:? * Procedure Codes:? * Electronic signature of Florinda Yost MD on 12/05/2023 at 11:19 AM EDT Sign off status: Pending * Provider:?Norberto Yost MD Date:?12/04 Generated for Ellis beltre/Darshan/Yocastasmitting on:?12/05/2023 11:19 AM EDT
--- NOTE | 2023-12-05 11:36 | MHC.OFFVIS ---
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 He is a patient Dr. Yost. He seen for the following urologic conditions - prostate cancer 12/27 - PSA <0.1 T 87, 05/30 <0.1, 11/27 <0.1 T 105 Continue good hormonal control 6 month follow-up Prostate cancer: September 2019 high-grade localized disease, external beam radiation with hormone therapy [facility] High risk localized prostate cancer, T1c N0 M0, Foster 4 + 4, grade group 4, PSA 9.1 - initial treatment GnRH with radiation - completed February 2020 Did have significant consequences from coming off anticoagulation with multiple clots in both his lower limbs and his upper limb requiring thrombectomy Prostate cancer was diagnosed Dr Gan 08/24 12/22 , a total PSA evaluation 8.1, 15%, 02/21 8.1 02/21 Bladder US - 30cc prostate with 1.5cm calcification in prostate, 04/23 5.3 on 5AR 11/22 5.3 F 13% 06/26 9.1, 12/24 <0.05 - 07/25 PSA <0.1, T6, 09/24 PSA < 0.1 T 10, 12/25 PSA <0.1, 03/27 <0.1 T10, 05/28 <0.1, 09/25 <0.1 10, 03/28 <0.1 T 64 Diagnosis was reached by needle biopsy, for elevated PSA, PSA at diagnosis 9.1 on 5AR, size at TRUS 30 gm. The Ishmael grade is September 2019 left base, 4+3 = 7 50%, , 4+3 = 7 90%, eft mid gland , 4+4 = 8 90%, , 4+3 = 7 60%, eft apex , 4+4 = 8 95%, , 3+4 = 7 50% , right base , 3+4 = 7 50%, , 4+3 = 7 40%, right mid gland BO, , 4+3 = 7 40%, right apex BO, BO Volume 600/1200 = 50% Pattern 4 on 60% of cores. TNM Classification of Malignant Tumours (TNM) T2a. The D'Bre (NCCN) risk category is High Risk (PSA > 20, Gl 8+, T3) - group 4 on biopsy - low risk PSA - intermediate volume. Initial therapy included - GNRH plus external beam radiation - [facility] Therapy for metastatic/CRPC included 10/07/19 Adrenal Blockade, Antiandrogen, GnRH agonist - on maximum blockade with finasteride Recent imaging included 10/24 , a bone scan, with no evidence of metastasis. [facility] Medical History Gastro-esophageal reflux disease without esophagitis Iron deficiency Atherosclerotic heart disease Chronic systolic heart failure Chronic atrial fibrillation Prostate cancer Weak urinary stream Prostate nodule Elevated PSA Surgical History History of surgery Review of Systems Const Denies chills and Denies fever(s) Card Reports no additional complaints and Denies syncope Resp Denies cough GI Denies abdominal pain and Denies heartburn Reports as per HPI and Denies change in libido Neuro Denies syncope Psych Denies change in libido Endo Denies change in libido Physical Exam Const General: cooperative, healthy appearing, comfortable and no acute distress Orientation/consciousness: patient oriented x3 HEENT Face and sinus: Yes normal facial exam Mouth: moist mucous membranes Neck Neck: Yes normal visual inspection, Yes full ROM and Yes trachea midline Chest Chest palpation & inspection: normal inspection of the chest Resp Effort & Inspection: normal respiratory effort, able to speak in complete sentences and no respiratory distress GI Inspection: Yes normal to inspection Back/Spine/Pelvis Cervical Spine: normal cervical lordosis Thoracic/Lumbar Spine: thoracic and lumbar spine normal to inspection Skin General skin exam: no rashes or lesions noted Neuro General: patient oriented x3, gait normal, tone normal and moves all extremities Extrem General: Yes normal to inspection and Yes capillary refill normal Assessment & Plan Assessment & Plan (1) Prostatitis: Code(s): N41.9 - Inflammatory disease of prostate, unspecified Category: Medical (2) Prostate cancer: Comment: September 2019 high-grade prostate cancer external beam radiation 24 months hormones Code(s): C61 - Malignant neoplasm of prostate Category: Medical Plan Six month Orders: Orders Prostate Specific Antigen 6 Months C61 - Malignant neoplasm of prostate Patient Instructions: Imaging studies, laboratory and physical exam results were discussed and reviewed in detail. No major barriers to patient understanding were identified. An opportunity to ask questions regarding the treatment plan was provided. All questions were answered. The patient expressed understanding and agreement with the above treatment plan. The patient is aware they should contact our office by phone for worsening of their current condition or the appearance of new urologic symptoms. Compliance is encouraged with any medications and followup testing that is ordered. It is a privilege to participate in the urologic care of your patient. If you have any questions or concerns regarding treatment for the above conditions, or other urologic issues, please do not hesitate to contact me. The office telephone contact is [phone]. This note is constructed using voice recognition software. While every effort has been made to ensure accuracy beef specialist errors may have been included. Yours sincerely, Dr Gigi Gan MD, [facility] - Urology Providers of Expert, Compassionate Care for the Genitourinary System Coding Level of Care Code Est Pt Level 3 (23519) Diagnoses Prostatitis N41.9 Prostate cancer C61
== END 2023-12-05 11:51 | disposition home or self-care (01) ==
LOC: HO.HUSH 11:17
PROVIDERS: PCP Internal Medicine Nephrology; Visit Provider Urology
DX: N41.9 Inflammatory disease of prostate, unspecified (principal); C61 Malignant neoplasm of prostate
CPT/HCPCS: 99213

== ENCOUNTER → 2023-12-05 11:17 | Outpatient (BNVA) | payer MEDICARE, SELFPAY | PROVIDERS: PCP Internal Medicine Nephrology; Visit Provider Urology | DX: N41.9 Inflammatory disease of prostate, unspecified (principal); C61 Malignant neoplasm of prostate | CPT/HCPCS: 99212 ==